=== PATIENT | male | born 1970 | race Caucasian/White ===

== ENCOUNTER 2016-06-17 20:18 | Emergency (ER) | payer BC ==
--- NOTE | 2016-06-17 20:57 | ERPHSYRPT ---
- History of Present Illness Time Seen by Provider: 06/17/16 20:46 Source: patient Exam Limitations: no limitations Patient Subjective Stated Complaint: pt states his bp was high at home 165/101 and recheck later was 155/102. states he had a headache at that time, but denies headache at this time. Triage Nursing Assessment: pt alert and oriented. answers qeustions approp. skin pink warm and dry. pt ambulatory with steady gait noted. respirations nonlabored with lungs cta. pt denies chest pain, denies headache at this time. heart tones wnl. Physician History: YESTERDAY PT STARTED WITH INTERMITTENT SHARP LEFT ANTERIOR CHEST PAIN LASTING UP TO 1 SECOND PER EPISODE; FOR THE PAST 17 HOURS SHORTNESS OF AIR; TODAY LEFT RETRO-ORBITAL HEADACHE, LIGHTHEADEDNESS AND BP OF 161/101. PT DENIES VOMITING, ABDOMINAL PAIN, RASH, SWELLING. Allergies/Adverse Reactions: No Known Drug Allergies Allergy (Unverified 06/17/16 20:42) Home Medications: No Home Meds 1 ea UD 06/17/16 [History] Hx Tetanus, Diphtheria Vaccination/Date Given: Yes Hx Influenza Vaccination/Date Given: No Hx Pneumococcal Vaccination/Date Given: No Immunizations Up to Date: Yes - Review of Systems Constitutional: Other (ELEVATED BP), No Fever Respiratory: Dyspnea Cardiac: Chest Pain Abdominal/Gastrointestinal: No Abdominal Pain, No Vomiting Skin: No Rash Neurological: Headache, Other (LIGHTHEADEDNESS) All Other Systems: Reviewed and Negative - Past Medical History Pertinent Past Medical History: No - Past Surgical History Past Surgical History: Yes Musculoskeletal: Orthopedic Surgery Other Surgical History: skin graft rt ankle - Social History Smoking Status: Former smoker Exposure to second hand smoke: No Drug Use: none Patient Lives Alone: No - Nursing Vital Signs Nursing Vital Signs: Initial Vital Signs Temperature 98.0 F Temperature Source Oral Pulse Rate 61 Respiratory Rate 16 Blood Pressure [] 136/81 Pain Intensity 0 - Physical Exam General Appearance: alert Eye Exam: PERRL/EOMI Ears, Nose, Throat Exam: TMs normal, pharynx normal, moist mucous membranes Neck Exam: normal inspection, No carotid bruit Respiratory Exam: lungs clear Cardiovascular Exam: normal heart sounds Gastrointestinal/Abdomen Exam: soft, normal bowel sounds Back Exam: normal range of motion Extremity Exam: normal inspection, No pedal edema Neurologic Exam: alert, cooperative Skin Exam: warm, dry SpO2 Interpretation: normal SpO2: 98 Oxygen Delivery: Room Air - Course Nursing assessment & vital signs reviewed: Yes EKG Interpreted by Me: RATE (51), Sinus Randolph, NORMAL AXIS, Non-specific ST Changes - Radiology Exams Chest X-ray Interpretation: Interpreted by me, No Pneumonia - CT Exams Head CT Interpretation: Tele-radiologist Report (NEGATIVE FOR INTRACRANIAL HEMORRHAGE OR MASS EFFECT. RIGHT MAXILLARY AND SPHENOID SINUS MUCOSAL THICKENING.) Ordered Tests: Active Orders 24 hr Category Date Time Status Qa Engineer STAT Care 06/17/16 20:51 Active EKG-ER Only STAT Care 06/17/16 20:51 Active IV Insertion STAT Care 06/17/16 20:51 Active Pulse Oximetry (ED) STAT Care 06/17/16 20:51 Active CHEST 2 VIEWS (PA AND LAT) Stat Exams 06/17/16 20:52 Taken HEAD WITHOUT CONTRAST [CT] Stat Exams 06/17/16 20:54 Taken AMYLASE Stat Lab 06/17/16 21:04 Completed CBC W DIFF Stat Lab 06/17/16 21:04 Completed CMP Stat Lab 06/17/16 21:04 Completed D-DIMER QUANTITATION Stat Lab 06/17/16 21:10 Completed LIPASE Stat Lab 06/17/16 21:04 Completed MAGNESIUM Stat Lab 06/17/16 21:04 Completed TROPONIN Q3H Lab 06/17/16 21:04 Completed TROPONIN Q3H Lab 06/18/16 00:00 Ordered TROPONIN Q3H Lab 06/18/16 03:00 Ordered TROPONIN Q3H Lab 06/18/16 06:00 Ordered TROPONIN Q3H Lab 06/18/16 09:00 Ordered UA W/ MICROSCOPIC Stat Lab 06/17/16 22:21 Completed Urine Triage Profile Stat Lab 06/17/16 22:21 Completed Medication Summary Generic Name Dose Route Start Last Admin Trade Name Freq PRN Reason Stop Dose Admin Sodium Chloride 1,000 mls @ 100 mls/hr 06/17/16 21:00 06/17/16 21:01 Sodium Chloride 0.9% 1000 Ml IV 07/17/16 20:59 100 mls/hr .Q10H BANG Administration Discontinued Medications Generic Name Dose Route Start Last Admin Trade Name Freq PRN Reason Stop Dose Admin Sodium Chloride Confirm 06/17/16 21:00 Sodium Chloride 0.9% 1000 Ml Administered 06/17/16 21:01 Dose 1,000 mls @ ud .ROUTE .STK-MED ONE Ceftriaxone Sodium/Dextrose 50 mls @ 100 mls/hr 06/17/16 21:40 06/17/16 21:47 Rocephin 1 Gm-D5w 50 Ml Bag IV 06/17/16 22:09 100 mls/hr STAT ONE Administration Ceftriaxone Sodium/Dextrose Confirm 06/17/16 21:46 Rocephin 1 Gm-D5w 50 Ml Bag Administered 06/17/16 21:47 Dose 50 mls @ ud IV .STK-MED ONE Nitroglycerin 0.4 mg 06/17/16 21:15 06/17/16 21:21 Nitrostat 0.4 Mg (Ed) SL 06/17/16 21:16 0.4 mg STAT ONE Administration Nitroglycerin Confirm 06/17/16 21:20 Nitrostat 0.4 Mg (Ed) Administered 06/17/16 21:21 Dose 0.4 mg SL .STK-MED ONE Lab/Rad Data: Laboratory Result Diagrams 06/17/16 21:04 06/17/16 21:04 Laboratory Results 06/17/16 06/17/16 06/17/16 Range/Units 22:21 22:21 21:10 WBC (4.0-10.5) K/mm3 RBC (4.1-5.6) M/mm3 Hgb (12.5-18.0) gm/dl Hct (42-50) % MCV (78-100) fl MCH (26-32) pg MCHC (32-36) g/dl RDW (11.5-14.0) % Plt Count (150-450) K/mm3 MPV (6-9.5) fl Gran % (36.0-66.0) % Lymphocytes % (24.0-44.0) % Monocytes % (0.0-12.0) % Eosinophils % (0.00-5.0) % Basophils % (0.0-0.4) % Basophils # (0-0.4) D-Dimer < 0.20 (0.00-0.49) mg/L Sodium (136-145) mEq/L Potassium (3.5-5.1) mEq/L Chloride (98-107) mEq/L Carbon Dioxide (21-32) mEq/L Anion Gap (5-15) MEQ/L BUN (9-20) mg/dL Creatinine (0.55-1.30) mg/dl Estimated GFR ML/MIN Glucose (70-110) MG/DL Calcium (8.5-10.1) mg/dL Magnesium (1.8-2.4) mg/dL Total Bilirubin (0.2-1.0) mg/dL AST (15-37) U/L ALT (12-78) U/L Alkaline Phosphatase (46-116) U/L Troponin I (0.000-0.056) ng/ml Serum Total Protein (6.4-8.2) gm/dL Albumin (3.4-5.0) g/dL Amylase (25-115) U/L Lipase (73-393) U/L Ur Collection Type CLEAN CATCH Urine Color YELLOW (YELLOW) Urine Appearance CLEAR (CLEAR) Urine pH 5.5 (5-6) Ur Specific [place] 1.020 (1.005-1.025) Urine Protein NEGATIVE (Negative) Urine Glucose (UA) NEGATIVE (NEGATIVE) mg/dL Urine Ketones NEGATIVE (NEGATIVE) Urine Nitrite NEGATIVE (NEGATIVE) Urine Bilirubin NEGATIVE (NEGATIVE) Urine Urobilinogen 0.2 (0-1) mg/dL Urine WBC (Auto) NEGATIVE (NEGATIVE) Urine RBC (Auto) TRACE-LYSED (0-5) Adama/ul Urine Microscopic RBC 0-2 (0-2) /HPF Ur Epithelial Cells RARE (FEW) /HPF Urine Bacteria RARE (NEGATIVE) /HPF Urine Opiates Level NEG. (NEGATIVE) Ur Methadone NEG. (NEGATIVE) Urine Barbiturates NEG. (NEGATIVE) Ur Phencyclidine (PCP) NEG. (NEGATIVE) Urine Amphetamine NEG. (NEGATIVE) U Benzodiazepine Level NEG. (NEGATIVE) Urine Cocaine NEG. (NEGATIVE) Urine Marijuana (THC) NEG. (NEGATIVE) Specimen Received 06/17/16 2224 06/17/16 06/17/16 06/17/16 Range/Units 21:04 21:04 21:04 WBC 5.0 (4.0-10.5) K/mm3 RBC 4.67 (4.1-5.6) M/mm3 Hgb 14.2 (12.5-18.0) gm/dl Hct 42.3 (42-50) % MCV 90.6 (78-100) fl MCH 30.4 (26-32) pg MCHC 33.6 (32-36) g/dl RDW 12.5 (11.5-14.0) % Plt Count 164 (150-450) K/mm3 MPV 9.8 H (6-9.5) fl Gran % 39.0 (36.0-66.0) % Lymphocytes % 49.2 H (24.0-44.0) % Monocytes % 8.6 (0.0-12.0) % Eosinophils % 3.0 (0.00-5.0) % Basophils % 0.2 (0.0-0.4) % Basophils # 0.01 (0-0.4) D-Dimer (0.00-0.49) mg/L Sodium 144 (136-145) mEq/L Potassium 3.8 (3.5-5.1) mEq/L Chloride 105 (98-107) mEq/L Carbon Dioxide 27.8 (21-32) mEq/L Anion Gap 14.8 (5-15) MEQ/L BUN 16 (9-20) mg/dL Creatinine 0.94 (0.55-1.30) mg/dl Estimated GFR > 60 ML/MIN Glucose 100 (70-110) MG/DL Calcium 8.8 (8.5-10.1) mg/dL Magnesium 2.0 (1.8-2.4) mg/dL Total Bilirubin 0.5 (0.2-1.0) mg/dL AST 19 (15-37) U/L ALT 36 (12-78) U/L Alkaline Phosphatase 55 (46-116) U/L Troponin I < 0.017 (0.000-0.056) ng/ml Serum Total Protein 6.5 (6.4-8.2) gm/dL Albumin 3.9 (3.4-5.0) g/dL Amylase 48 (25-115) U/L Lipase 193 (73-393) U/L Ur Collection Type Urine Color (YELLOW) Urine Appearance (CLEAR) Urine pH (5-6) Ur Specific [place] (1.005-1.025) Urine Protein (Negative) Urine Glucose (UA) (NEGATIVE) mg/dL Urine Ketones (NEGATIVE) Urine Nitrite (NEGATIVE) Urine Bilirubin (NEGATIVE) Urine Urobilinogen (0-1) mg/dL Urine WBC (Auto) (NEGATIVE) Urine RBC (Auto) (0-5) Adama/ul Urine Microscopic RBC (0-2) /HPF Ur Epithelial Cells (FEW) /HPF Urine Bacteria (NEGATIVE) /HPF Urine Opiates Level (NEGATIVE) Ur Methadone (NEGATIVE) Urine Barbiturates (NEGATIVE) Ur Phencyclidine (PCP) (NEGATIVE) Urine Amphetamine (NEGATIVE) U Benzodiazepine Level (NEGATIVE) Urine Cocaine (NEGATIVE) Urine Marijuana (THC) (NEGATIVE) Specimen Received - Progress Progress Note: 06/17/16 23:50 PT HAS HAD A HEART RATE 0F 46 DURING PRESENT ER VISIT AND HAS NEVER SEEN A NAIL MACHINE OPERATOR OR HAD A STRESS TEST OR ECHOCARDIOGRAM. REQUEST MADE FOR TRANSFER TO [facility]. 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
[2016-06-17] MEDS ORDERED: Sodium Chloride 0.9% 1000 ML 1,000 ML ONE (21:00)
[2016-06-17] MEDS ORDERED: Sodium Chloride 0.9% 1000 ML 1,000 ML IV SCH (21:00)
[2016-06-17 21:11] LABS: BASOPHIL % 0.2 % (0.0-0.4); Lymphocytes % 49.2 % (24.0-44.0); Mean Cell Volume 90.6 fl (78-100); Mean Corpuscular Hemoglobin 30.4 pg (26-32); Mean Platelet Volume 9.8 fl (6-9.5); Monocytes % 8.6 % (0.0-12.0); Platelet Count 164 K/mm3 (150-450); Red Blood Count 4.67 M/mm3 (4.1-5.6); Red Cell Distribution Width 12.5 % (11.5-14.0)
[2016-06-17] MEDS ORDERED: Nitrostat 0.4 MG (ED) SL ONE ×2 (21:15→21:20)
[2016-06-17] MEDS ORDERED: ROCEPHIN 1 Gm-D5w 50 ml Bag** 50 ML IV ONE ×2 (21:40→21:46)
[2016-06-17 21:44] LABS: ALBUMIN 3.9 g/dL (3.4-5.0); ALKALINE PHOSPHATASE 55 U/L (46-116); ANION GAP 14.8 MEQ/L (5-15); BILIRUBIN,TOTAL 0.5 mg/dL (0.2-1.0); BLOOD UREA NITROGEN 16 mg/dL (9-20); CHLORIDE 105 mEq/L (98-107); Carbon Dioxide 27.8 mEq/L (21-32); Glucose 100 MG/DL (70-110); LIPASE 193 U/L (73-393); Potassium 3.8 mEq/L (3.5-5.1); SGOT/AST 19 U/L (15-37); SGPT/ALT 36 U/L (12-78); SODIUM 144 mEq/L (136-145); Total Protein 6.5 gm/dL (6.4-8.2)
[2016-06-17 22:47] LABS: Bacteria RARE /HPF (NEGATIVE); COMPLETE URINE MICROSCOPIC? YES; Collection Type CLEAN CATCH; Epithelial Cells RARE /HPF (FEW); Ph 5.5 (5-6)
[2016-06-18 01:07] VITALS: BP 126/77; PULSE 48; O2SAT 98
--- NOTE | 2016-06-18 08:35 | XRAY ---
Indication: Chest pain. High blood pressure. Comparison: January 18, 2007 AP/lateral chest again hyperinflated with minimal lingular fibrosis/scarring. Remaining heart, lungs, and bony thorax normal.
--- NOTE | 2016-06-18 08:38 | XRAY ---
Indication: Headache and dizziness. High blood pressure. Multiple contiguous axial images obtained through the head without contrast. Comparison: None Normal-appearing brain parenchyma, ventricles, and bony calvarium. Moderate mucosal thickening of the right sphenoid and right maxillary sinuses. Mastoid air cells are pneumatized and clear. Impression: No acute intracranial abnormalities. Comment: Preliminary interpretation was made by [facility]. No discrepancy. CT DI 70.21
== END 2016-06-18 00:56 | disposition short-term general hospital (02) ==
LOC: ED 20:18
DX: J32.0 Chronic maxillary sinusitis (principal); J32.3 Chronic sphenoidal sinusitis; I10 Essential (primary) hypertension; I49.8 Other specified cardiac arrhythmias; R00.1 Bradycardia, unspecified; R51 Headache
CPT/HCPCS: 36000; 36415; 70450; 71020; 80053; 80307; 81000; 82150; 83690; 83735; 84484; 85025; 85379; 93005; 93041; 96360; 96361; 96365; 99284; J0696

== ENCOUNTER 2018-08-10 22:47 | Emergency (ER) | payer BC ==
[2018-08-10 23:07] VITALS: O2SAT 98
[2018-08-10] MEDS ORDERED: Sodium Chloride 0.9% 1000 ML 1,000 ML IV STA (23:12)
--- NOTE | 2018-08-10 23:12 | ERPHSYRPT ---
- History of Present Illness Time Seen by Provider: 08/10/18 23:05 Historian: patient, family Patient Subjective Stated Complaint: pt is alert and oriented. pt is ambulatory with a steady gait. pt comes in with c/o abd pain that began at 0030 today. pt states the pain is epigastic and RUQ. pt states that the pain goes around to the back. pt denies n/v/d. pt bowel sounds present x4. pt is not diaphoretic, no chest pain, no sob, pt states he's been having RUQ pain for a few months and has not seen family doctor. Triage Nursing Assessment: see above Physician History: 47 y/o white male presents with ruq abd pain for several months. pain radiates around into back. pt denies cp, denies soa. pt worse today. onset approx 1230. no n/v/d. pt has been on a keto diet and lost 40 pounds since february 2018. pt feels bloated and belchy and gassy. Timing/Duration: week(s), worse Abdominal Pain Onset Location: RUQ Pain Radiation: back Severity of Pain-Max: moderate Severity of Pain-Current: mild Modifying Factors: Improves With: nothing Associated Symptoms: back (earlier) Previous symptoms: same symptoms as today Allergies/Adverse Reactions: No Known Drug Allergies Allergy (Unverified 06/17/16 20:42) Home Medications: No Home Meds [No Home Meds] 1 [facility] UD 06/17/16 [History] Hx Tetanus, Diphtheria Vaccination/Date Given: Yes Hx Influenza Vaccination/Date Given: No Hx Pneumococcal Vaccination/Date Given: No Immunizations Up to Date: Yes - Review of Systems Constitutional: No Symptoms Eyes: No Symptoms Ears, Nose, & Throat: No Symptoms Respiratory: No Symptoms Cardiac: No Symptoms Abdominal/Gastrointestinal: Abdominal Pain (ruq abd ) Genitourinary Symptoms: No Symptoms Musculoskeletal: No Symptoms Skin: No Symptoms Neurological: No Symptoms Psychological: No Symptoms Endocrine: No Symptoms Hematologic/Lymphatic: No Symptoms Immunological/Allergic: No Symptoms All Other Systems: Reviewed and Negative - Past Medical History Pertinent Past Medical History: No Neurological History: No Pertinent History ENT History: No Pertinent History Cardiac History: Hypertension Respiratory History: No Pertinent History Endocrine Medical History: No Pertinent History Musculoskeletal History: No Pertinent History GI Medical History: No Pertinent History History: No Pertinent History Psycho-Social History: No Pertinent History Male Reproductive Disorders: No Pertinent History Other Medical History: possible gall bladder problems - Past Surgical History Past Surgical History: Yes Neuro Surgical History: No Pertinent History Cardiac: No Pertinent History Respiratory: No Pertinent History Gastrointestinal: No Pertinent History Genitourinary: No Pertinent History Musculoskeletal: Orthopedic Surgery Male Surgical History: No Pertinent History Other Surgical History: cyst removal from left hand, skin graft rt ankle, R meniscus surgery. - Social History Smoking Status: Former smoker Exposure to second hand smoke: No Drug Use: none Patient Lives Alone: No - Nursing Vital Signs Nursing Vital Signs: Initial Vital Signs Pulse Rate 56 L 08/10/18 22:56 Respiratory Rate 18 08/10/18 22:56 Blood Pressure 163/92 08/10/18 22:56 O2 Sat by Pulse Oximetry 98 08/10/18 22:56 Pain Scale Pain Intensity 5 - Physical Exam General Appearance: no apparent distress, alert Eye Exam: PERRL/EOMI Ears, Nose, Throat Exam: normal ENT inspection, moist mucous membranes Neck Exam: normal inspection, non-tender, supple, full range of motion Respiratory Exam: normal breath sounds, lungs clear, airway intact, No chest tenderness, No respiratory distress Cardiovascular Exam: regular rate/rhythm, normal heart sounds, normal peripheral pulses Gastrointestinal/Abdomen Exam: soft, normal bowel sounds, tenderness (mild ruq) , No guarding, No rebound Rectal Exam: not done Back Exam: normal inspection, normal range of motion, No CVA tenderness, No vertebral tenderness Extremity Exam: normal inspection, normal range of motion, pelvis stable Neurologic Exam: alert, oriented x 3, cooperative, tire shop manager II-XII nml as tested Skin Exam: normal color, warm, dry Lymphatic Exam: No adenopathy SpO2 Interpretation: normal SpO2: 98 O2 Delivery: Room Air - Course Nursing assessment & vital signs reviewed: Yes Ordered Tests: Active Orders 24 hr Category Date Time Status IV Insertion STAT Care 08/10/18 23:12 Active AMYLASE Stat Lab 08/10/18 23:14 Completed CBC W DIFF Stat Lab 08/10/18 23:14 Completed CMP Stat Lab 08/10/18 23:14 Completed LIPASE Stat Lab 08/10/18 23:14 Completed Lactic Acid Stat Lab 08/10/18 23:12 Completed UA W/RFX UR CULTURE Stat Lab 08/10/18 23:56 Completed Medication Summary Discontinued Medications Generic Name Dose Route Start Last Admin Trade Name Wilfrdio PRN Reason Stop Dose Admin Sodium Chloride 1,000 mls @ 999 mls/hr 08/10/18 23:12 08/11/18 00:23 Sodium Chloride 0.9% 1000 Ml IV 08/11/18 00:12 Infused .Q1H1M STA Infusion Sodium Chloride Confirm 08/10/18 23:27 Sodium Chloride 0.9% 1000 Ml Administered 08/10/18 23:28 Dose 1,000 mls @ ud .ROUTE .STK-MED ONE Lab/Rad Data: Laboratory Result Diagrams 08/10/18 23:14 08/10/18 23:14 Laboratory Results 08/10/18 08/10/18 08/10/18 Range/Units 23:56 23:14 23:14 WBC 6.3 (4.0-10.5) K/mm3 RBC 4.98 (4.1-5.6) M/mm3 Hgb 15.1 (12.5-18.0) gm/dl Hct 44.5 (42-50) % MCV 89.4 (78-100) fl MCH 30.3 (26-32) pg MCHC 33.9 (32-36) g/dl RDW 12.9 (11.5-14.0) % Plt Count 166 (150-450) K/mm3 MPV 10.0 H (6-9.5) fl Gran % 51.9 (36.0-66.0) % Eos # (Auto) 0.22 (0-0.5) Absolute Lymphs (auto) 2.29 (1.0-4.6) Absolute Monos (auto) 0.51 (0.0-1.3) Lymphocytes % 36.2 (24.0-44.0) % Monocytes % 8.1 (0.0-12.0) % Eosinophils % 3.5 (0.00-5.0) % Basophils % 0.3 (0.0-0.4) % Absolute Granulocytes 3.29 (1.4-6.9) Basophils # 0.02 (0-0.4) Sodium 143 (137-145) mmol/L Potassium 3.8 (3.5-5.1) mmol/L Chloride 105 (98-107) mmol/L Carbon Dioxide 25 (22-30) mmol/L Anion Gap 15.8 H (5-15) MEQ/L BUN 26 H (9-20) mg/dL Creatinine 0.88 (0.66-1.25) mg/dL Estimated GFR > 60.0 ML/MIN Glucose 92 (74-106) mg/dL Lactic Acid (0.4-2.0) Calcium 9.8 (8.4-10.2) mg/dL Total Bilirubin 0.70 (0.2-1.3) mg/dL AST 28 (17-59) U/L ALT 34 (0-50) U/L Alkaline Phosphatase 54 (38-126) U/L Serum Total Protein 7.2 (6.3-8.2) g/dL Albumin 4.7 (3.5-5.0) g/dL Amylase 82 (30-110) U/L Lipase 93 (23-300) U/L Urine Color YELLOW (YELLOW) Urine Appearance CLEAR (CLEAR) Urine pH 6.0 (5-6) Ur Specific [place] 1.027 (1.005-1.025) Urine Protein NEGATIVE (Negative) Urine Ketones NEGATIVE (NEGATIVE) Urine Blood SMALL (0-5) Adama/ul Urine Nitrite NEGATIVE (NEGATIVE) Urine Bilirubin NEGATIVE (NEGATIVE) Urine Urobilinogen 2 (0-1) mg/dL Ur Leukocyte Esterase NEGATIVE (NEGATIVE) Urine WBC (Auto) NONE (0-5) /HPF Urine RBC (Auto) 3-5 (0-2) /HPF U Epithel Cells (Auto) NONE (FEW) /HPF Urine Bacteria (Auto) NONE SEEN (NEGATIVE) /HPF Calcium Oxalate Crystal 6-10 (NEGATIVE) /HPF Urine Culture Reflexed NO (NO) Urine Glucose NEGATIVE (NEGATIVE) mg/dL 08/10/18 Range/Units 23:12 WBC (4.0-10.5) K/mm3 RBC (4.1-5.6) M/mm3 Hgb (12.5-18.0) gm/dl Hct (42-50) % MCV (78-100) fl MCH (26-32) pg MCHC (32-36) g/dl RDW (11.5-14.0) % Plt Count (150-450) K/mm3 MPV (6-9.5) fl Gran % (36.0-66.0) % Eos # (Auto) (0-0.5) Absolute Lymphs (auto) (1.0-4.6) Absolute Monos (auto) (0.0-1.3) Lymphocytes % (24.0-44.0) % Monocytes % (0.0-12.0) % Eosinophils % (0.00-5.0) % Basophils % (0.0-0.4) % Absolute Granulocytes (1.4-6.9) Basophils # (0-0.4) Sodium (137-145) mmol/L Potassium (3.5-5.1) mmol/L Chloride (98-107) mmol/L Carbon Dioxide (22-30) mmol/L Anion Gap (5-15) MEQ/L BUN (9-20) mg/dL Creatinine (0.66-1.25) mg/dL Estimated GFR ML/MIN Glucose (74-106) mg/dL Lactic Acid 0.9 (0.4-2.0) Calcium (8.4-10.2) mg/dL Total Bilirubin (0.2-1.3) mg/dL AST (17-59) U/L ALT (0-50) U/L Alkaline Phosphatase (38-126) U/L Serum Total Protein (6.3-8.2) g/dL Albumin (3.5-5.0) g/dL Amylase (30-110) U/L Lipase (23-300) U/L Urine Color (YELLOW) Urine Appearance (CLEAR) Urine pH (5-6) Ur Specific [place] (1.005-1.025) Urine Protein (Negative) Urine Ketones (NEGATIVE) Urine Blood (0-5) Adama/ul Urine Nitrite (NEGATIVE) Urine Bilirubin (NEGATIVE) Urine Urobilinogen (0-1) mg/dL Ur Leukocyte Esterase (NEGATIVE) Urine WBC (Auto) (0-5) /HPF Urine RBC (Auto) (0-2) /HPF U Epithel Cells (Auto) (FEW) /HPF Urine Bacteria (Auto) (NEGATIVE) /HPF Calcium Oxalate Crystal (NEGATIVE) /HPF Urine Culture Reflexed (NO) Urine Glucose (NEGATIVE) mg/dL - Progress Progress: improved, pain not gone completely, re-examined Counseled pt/family regarding: lab results, diagnosis, need for follow-up - Departure Time of Disposition: 00:41 Departure Disposition: Home Clinical Impression: Right upper quadrant abdominal pain Condition: Stable Critical Care Time: No Referrals: LAINEY MCELROY, HUGO [Primary Care Provider] - Additional Instructions: drink plenty of fluids. avoid fatty, greasy, spicy food. keep your appointment on 08/11/17 for further management
[2018-08-10 23:17] LABS: BASOPHIL % 0.3 % (0.0-0.4); Basophil (Absolute #) 0.02 (0-0.4); Eosinophil % 3.5 % (0.00-5.0); Eosinophil (Absolute #) 0.22 (0-0.5); Granulocyte Absolute (ANC) 3.29 (1.4-6.9); Granulocytes % 51.9 % (36.0-66.0); Hematocrit 44.5 % (42-50); Hemoglobin 15.1 gm/dl (12.5-18.0); Lymphocyte (Absolute #) 2.29 (1.0-4.6); Lymphocytes % 36.2 % (24.0-44.0); Mean Cell Volume 89.4 fl (78-100); Mean Corpuscular Hemoglobin 30.3 pg (26-32); Mean Corpuscular Hgb Concent. 33.9 g/dl (32-36); Monocyte (Absolute #) 0.51 (0.0-1.3); Monocytes % 8.1 % (0.0-12.0); Platelet Count 166 K/mm3 (150-450); Red Blood Count 4.98 M/mm3 (4.1-5.6); Red Cell Distribution Width 12.9 % (11.5-14.0); White Blood Count 6.3 K/mm3 (4.0-10.5)
[2018-08-10 23:23] LABS: ALBUMIN 4.7 g/dL (3.5-5.0); ALKALINE PHOSPHATASE 54 U/L (38-126); AMYLASE 82 U/L (30-110); ANION GAP 15.8 MEQ/L (5-15); BLOOD UREA NITROGEN 26 mg/dL (9-20); CHLORIDE 105 mmol/L (98-107); Calcium 9.8 mg/dL (8.4-10.2); Carbon Dioxide 25 mmol/L (22-30); Creatinine 1 0.88 mg/dL (0.66-1.25); Glucose 92 mg/dL (74-106); LIPASE 93 U/L (23-300); Potassium 3.8 mmol/L (3.5-5.1); SGOT/AST 28 U/L (17-59); SGPT/ALT 34 U/L (0-50); SODIUM 143 mmol/L (137-145); Total Protein 7.2 g/dL (6.3-8.2)
[2018-08-10] MEDS ORDERED: Sodium Chloride 0.9% 1000 ML 1,000 ML ONE (23:27)
[2018-08-11 00:35] LABS: Appearance CLEAR (CLEAR); Bilirubin NEGATIVE (NEGATIVE); Blood SMALL Ery/ul (0-5); Glucose NEGATIVE (NEGATIVE); Ketones NEGATIVE (NEGATIVE); Leukocyte Esterase NEGATIVE (NEGATIVE); Nitrite NEGATIVE (NEGATIVE); Protein,Urine Dip NEGATIVE (Negative); Specific Gravity 1.027 (1.005-1.025); Urobilinogen 2 mg/dL (0-1)
[2018-08-11 00:36] LABS: Bacteria NONE SEEN /HPF (NEGATIVE)
[2018-08-11 00:41] VITALS: BP 143/66; PULSE 56
== END 2018-08-11 00:48 | disposition home or self-care (01) ==
LOC: ED 22:47
DX: R10.11 Right upper quadrant pain (principal)
CPT/HCPCS: 36000; 36415; 80053; 81001; 82150; 83605; 83690; 85025; 96360; 99284

== ENCOUNTER 2020-09-11 14:43 | Emergency (ER) | payer BC ==
[2020-09-11] MEDS ORDERED: NORVASC 5 MG PO ONE (15:03)
[2020-09-11] MEDS ORDERED: Catapres 0.1 MG PO ONE (15:03)
[2020-09-11] MEDS ORDERED: Hydromorphone 1 mg/ml Injection IV ONE ×2 (15:04→17:19)
[2020-09-11] MEDS ORDERED: Catapres 0.1 MG ONE (15:15)
[2020-09-11] MEDS ORDERED: Hydromorphone 1 mg/ml Injection ONE ×2 (15:15→17:20)
[2020-09-11] MEDS ORDERED: Sodium Chloride 0.9% 1000 ML 1,000 ML IV SCH (15:15)
[2020-09-11] MEDS ORDERED: NORVASC 5 MG ONE (15:15)
[2020-09-11] MEDS ORDERED: Sodium Chloride 0.9% 1000 ML 1,000 ML ONE (15:15)
[2020-09-11 15:19] LABS: Absolute Neutrophil Ct (ANC) 4.82 (1.4-6.9); BASOPHIL % 0.3 % (0.0-0.4); Basophil (Absolute #) 0.02 (0-0.4); Eosinophil % 1.4 % (0.00-5.0); Hematocrit 42.7 % (42-50); Hemoglobin 14.4 gm/dl (12.5-18.0); Lymphocytes % 23.9 % (24.0-44.0); Mean Cell Volume 91.6 fl (78-100); Mean Corpuscular Hemoglobin 30.9 pg (26-32); Mean Corpuscular Hgb Concent. 33.7 g/dl (32-36); Mean Platelet Volume 9.5 fl (7.5-11.0); Monocyte (Absolute #) 0.48 (0.0-1.3); Monocytes % 6.7 % (0.0-12.0); Neutrophil % 67.7 % (36.0-66.0); Platelet Count 160 K/mm3 (150-450); Red Blood Count 4.66 M/mm3 (4.1-5.6); Red Cell Distribution Width 12.6 % (11.5-14.0); White Blood Count 7.1 K/mm3 (4.0-10.5)
[2020-09-11 15:33] LABS: ALBUMIN 4.4 g/dL (3.5-5.0); ALKALINE PHOSPHATASE 51 U/L (38-126); BLOOD UREA NITROGEN 15 mg/dL (9-20); CHLORIDE 102 mmol/L (98-107); Calcium 9.5 mg/dL (8.4-10.2); Carbon Dioxide 29 mmol/L (22-30); Creatinine 1 0.75 mg/dL (0.66-1.25); EST GLOMERULAR FILTRATION RATE > 60.0 ML/MIN; Glucose 107 mg/dL (74-106); Potassium 3.7 mmol/L (3.5-5.1); SGOT/AST 23 U/L (17-59); SGPT/ALT 21 U/L (0-50); SODIUM 138 mmol/L (137-145); Total Protein 6.8 g/dL (6.3-8.2)
[2020-09-11 15:36] LABS: Erythrocyte Sedimentation Rate 1 mm/hr (0-15)
[2020-09-11] MEDS ORDERED: APRESOLINE 20 MG/ML INJ IV ONE ×2 (16:53→17:27)
[2020-09-11] MEDS ORDERED: APRESOLINE 20 MG/ML INJ ONE ×3 (16:54→18:27)
--- NOTE | 2020-09-11 17:03 | ERPHSYRPT ---
- History of Present Illness Time Seen by Provider: 09/11/20 15:15 Source: patient, family Exam Limitations: no limitations Patient Subjective Stated Complaint: headache Triage Nursing Assessment: pt to ED c/o MARSHALL onset 0300 this am. also reports no anuel HTN since 1030 this am, highest 176/110 at that time. hx HTN, takes medication and did have it today. rates 10/10 pain in head, very sensitive to light. reports some dizziness this am that has since subsided. Physician History: Patient is a 49-year-old male who started with a headache at approximately 2 AM. He has a history of hypertension he has some photophobia. He denies any chest pain shortness of breath etc. he presently is maintained on losartan 100 mg tulio y. He has had some dizziness today. And his blood pressure has been elevated highest reading at home was 176/110. Timing/Duration: today Activities at Onset: none Quality: throbbing Nitro Today/Relief: no nitro taken today Aspirin Treatment Today: no aspirin today Associated Symptoms: headaches Prior Chest Pain/Cardiac Workup: no prior chest pain, no prior cardiac workup Allergies/Adverse Reactions: No Known Drug Allergies Allergy (Unverified 06/17/16 20:42) Home Medications: Hydrocodone/Acetaminophen [Hydrocodone-Acetamin 10-300 mg] 1 each PO DAILY 09/11/20 [History] Losartan Potassium 100 mg PO BID 09/11/20 [History] Omeprazole 20 mg PO DAILY 09/11/20 [History] Tadalafil [Cialis] 2.5 mg PO DAILY 09/11/20 [History] Hx Tetanus, Diphtheria Vaccination/Date Given: Yes Hx Influenza Vaccination/Date Given: No Hx Pneumococcal Vaccination/Date Given: No Immunizations Up to Date: No Travel Risk - International Travel Have you traveled outside of the country in past 3 weeks: No - Coronavirus Screening Are you exhibiting any of the following symptoms?: No Close contact with a COVID-19 positive Pt in past 14-21 Days: No - Vaccine Status Have you recieved a Covid-19 vaccination: No - Review of Systems Constitutional: No Fever, No Chills Eyes: No Symptoms Ears, Nose, & Throat: No Symptoms Respiratory: No Cough, No Dyspnea Cardiac: No Chest Pain, No Edema, No Syncope Abdominal/Gastrointestinal: No Abdominal Pain, No Nausea, No Vomiting, No Diarrhea Genitourinary Symptoms: No Dysuria Musculoskeletal: No Back Pain, No Neck Pain Skin: No Rash Neurological: No Dizziness, No Focal Weakness, No Sensory Changes Psychological: No Symptoms Endocrine: No Symptoms All Other Systems: Reviewed and Negative - Past Medical History Pertinent Past Medical History: Yes Neurological History: No Pertinent History ENT History: No Pertinent History Cardiac History: Hypertension Respiratory History: No Pertinent History Endocrine Medical History: Other Musculoskeletal History: Degenerative Disk Disease, Osteoarthritis GI Medical History: No Pertinent History History: No Pertinent History Psycho-Social History: No Pertinent History Male Reproductive Disorders: No Pertinent History Other Medical History: MRI showed a benign cyst on the kidney, cyst in the thyroid, - Past Surgical History Past Surgical History: Yes Neuro Surgical History: No Pertinent History Cardiac: No Pertinent History Respiratory: No Pertinent History Gastrointestinal: No Pertinent History Genitourinary: No Pertinent History Musculoskeletal: Orthopedic Surgery Male Surgical History: No Pertinent History Other Surgical History: cyst removal from left hand, skin graft rt ankle, R meniscus surgery. - Social History Smoking Status: Former smoker Exposure to second hand smoke: No Drug Use: none Patient Lives Alone: No - Nursing Vital Signs Nursing Vital Signs: Initial Vital Signs Temperature 99.2 F 09/11/20 15:03 Pulse Rate 68 09/11/20 15:03 Respiratory Rate 18 09/11/20 15:03 Blood Pressure 173/97 09/11/20 15:03 O2 Sat by Pulse Oximetry 96 09/11/20 15:03 Pain Scale Pain Intensity 2 - Physical Exam General Appearance: mild distress Eye Exam: PERRL/EOMI, eyes nml inspection Ears, Nose, Throat Exam: normal ENT inspection, moist mucous membranes Neck Exam: normal inspection, non-tender, supple Respiratory Exam: normal breath sounds Cardiovascular Exam: regular rate/rhythm, normal heart sounds, No edema Gastrointestinal/Abdomen Exam: soft, No tenderness, No mass Back Exam: normal inspection, No CVA tenderness, No vertebral tenderness Extremity Exam: normal inspection, normal range of motion Neurologic Exam: alert, oriented x 3, cooperative, normal mood/affect, nml cerebellar function, sensation nml, No motor deficits Skin Exam: normal color, warm, dry Lymphatic Exam: No adenopathy SpO2 Interpretation: normal SpO2: 93 O2 Delivery: Room Air - Course Nursing assessment & vital signs reviewed: Yes EKG Interpreted by Me: RATE (65), NORMAL AXIS, NORMAL INTERVALS, NORMAL QRS, Other (Early repolarization) Ordered Tests: Active Orders 24 hr Category Date Time Status EKG-ER Only STAT Care 09/11/20 15:06 Active EKG-ER Only STAT Care 09/11/20 17:35 Active ABDOMEN AND PELVIS W CONTRAST [CT] Stat Exams 09/11/20 17:35 Taken HEAD WITHOUT CONTRAST [CT] Stat Exams 09/11/20 15:05 Taken AMYLASE Stat Lab 09/11/20 17:45 Completed CBC W DIFF Stat Lab 09/11/20 15:17 Completed CMP Stat Lab 09/11/20 15:17 Completed CMP Stat Lab 09/11/20 17:45 Completed Erythrocyte Sedimentation Rate Stat Lab 09/11/20 15:17 Completed LIPASE Stat Lab 09/11/20 17:45 Completed Lactic Acid Stat Lab 09/11/20 17:49 Completed Lactic Acid Urgent Lab 09/11/20 15:04 Completed TROPONIN Q3H Lab 09/11/20 15:17 Completed TROPONIN Q3H Lab 09/11/20 17:45 Completed TROPONIN Q3H Lab 09/11/20 21:15 Ordered UA W/RFX UR CULTURE Stat Lab 09/11/20 17:16 Completed Urine Triage Profile Stat Lab 09/11/20 17:16 Completed Medication Summary Generic Name Dose Route Start Last Admin Trade Name Freq PRN Reason Stop Dose Admin Sodium Chloride 1,000 mls @ 100 mls/hr 09/11/20 15:15 09/11/20 15:23 Sodium Chloride 0.9% 1000 Ml IV 10/11/20 15:14 100 mls/hr .Q10H BANG Administration Discontinued Medications Generic Name Dose Route Start Last Admin Trade Name Freq PRN Reason Stop Dose Admin Amlodipine Besylate 10 mg 09/11/20 15:03 09/11/20 15:22 Norvasc 5 Mg PO 09/11/20 15:04 10 mg STAT ONE Administration Amlodipine Besylate Confirm 09/11/20 15:15 Norvasc 5 Mg Administered 09/11/20 15:16 Dose 10 mg .ROUTE .STK-MED ONE Clonidine 0.1 mg 09/11/20 15:03 09/11/20 15:19 Catapres 0.1 Mg PO 09/11/20 15:04 0.1 mg STAT ONE Administration Clonidine Confirm 09/11/20 15:15 Catapres 0.1 Mg Administered 09/11/20 15:16 Dose 0.1 mg .ROUTE .STK-MED ONE Hydralazine HCl 10 mg 09/11/20 16:53 09/11/20 16:56 Apresoline 20 Mg/Ml Inj IV 09/11/20 16:54 10 mg STAT ONE Administration Hydralazine HCl Confirm 09/11/20 16:54 Apresoline 20 Mg/Ml Inj Administered 09/11/20 16:55 Dose 20 mg .ROUTE .STK-MED ONE Hydralazine HCl 10 mg 09/11/20 17:27 09/11/20 17:28 Apresoline 20 Mg/Ml Inj IV 09/11/20 17:28 10 mg STAT ONE Administration Hydralazine HCl Confirm 09/11/20 17:28 Apresoline 20 Mg/Ml Inj Administered 09/11/20 17:29 Dose 20 mg .ROUTE .STK-MED ONE Hydralazine HCl 10 mg 09/11/20 18:25 09/11/20 18:39 Apresoline 20 Mg/Ml Inj IV 09/11/20 18:26 10 mg STAT ONE Administration Hydralazine HCl Confirm 09/11/20 18:27 Apresoline 20 Mg/Ml Inj Administered 09/11/20 18:28 Dose 20 mg .ROUTE .STK-MED ONE Hydromorphone HCl 1 mg 09/11/20 15:04 09/11/20 15:25 Hydromorphone 1 Mg/Ml Injection IV 09/11/20 15:05 1 mg STAT ONE Administration Hydromorphone HCl Confirm 09/11/20 15:15 Hydromorphone 1 Mg/Ml Injection Administered 09/11/20 15:16 Dose 1 mg .ROUTE .STK-MED ONE Hydromorphone HCl 1 mg 09/11/20 17:19 09/11/20 17:23 Hydromorphone 1 Mg/Ml Injection IV 09/11/20 17:20 1 mg STAT ONE Administration Hydromorphone HCl Confirm 09/11/20 17:20 Hydromorphone 1 Mg/Ml Injection Administered 09/11/20 17:21 Dose 1 mg .ROUTE .STK-MED ONE Ketorolac Tromethamine 30 mg 09/11/20 18:23 09/11/20 18:29 Toradol 30 Mg Injection IV 09/11/20 18:24 30 mg STAT ONE Administration Ketorolac Tromethamine Confirm 09/11/20 18:27 Toradol 30 Mg Injection Administered 09/11/20 18:28 Dose 30 mg .ROUTE .STK-MED ONE Ondansetron HCl Confirm 09/11/20 17:31 Zofran 4 Mg/2 Ml Vial Administered 09/11/20 17:32 Dose 4 mg .ROUTE .STK-MED ONE Ondansetron HCl 4 mg 09/11/20 18:50 09/11/20 18:51 Zofran 4 Mg/2 Ml Vial IV 09/11/20 18:51 4 mg STAT ONE Administration Sumatriptan Succinate 6 mg 09/11/20 18:23 09/11/20 19:10 Imitrex 6 Mg/0.5 Ml SQ 09/11/20 18:24 6 mg STAT STA Administration Sumatriptan Succinate Confirm 09/11/20 18:27 Imitrex 6 Mg/0.5 Ml Administered 09/11/20 18:28 Dose 6 mg SQ .STK-MED ONE Lab/Rad Data: Laboratory Result Diagrams 09/11/20 15:17 09/11/20 17:45 Laboratory Results 09/11/20 09/11/20 09/11/20 Range/Units 17:49 17:45 17:45 WBC (4.0-10.5) K/mm3 RBC (4.1-5.6) M/mm3 Hgb (12.5-18.0) gm/dl Hct (42-50) % MCV (78-100) fl MCH (26-32) pg MCHC (32-36) g/dl RDW (11.5-14.0) % Plt Count (150-450) K/mm3 MPV (7.5-11.0) fl Gran % (36.0-66.0) % Eos # (Auto) (0-0.5) Absolute Lymphs (auto) (1.0-4.6) Absolute Monos (auto) (0.0-1.3) Lymphocytes % (24.0-44.0) % Monocytes % (0.0-12.0) % Eosinophils % (0.00-5.0) % Basophils % (0.0-0.4) % Absolute Granulocytes (1.4-6.9) Basophils # (0-0.4) ESR (0-15) mm/hr Sodium 134 L (137-145) mmol/L Potassium 3.8 (3.5-5.1) mmol/L Chloride 103 (98-107) mmol/L Carbon Dioxide 26 (22-30) mmol/L Anion Gap 8.9 (5-15) MEQ/L BUN 15 (9-20) mg/dL Creatinine 0.65 L (0.66-1.25) mg/dL Estimated GFR > 60.0 ML/MIN Glucose 107 H (74-106) mg/dL Lactic Acid 1.3 (0.4-2.0) Calcium 9.5 (8.4-10.2) mg/dL Total Bilirubin 0.50 (0.2-1.3) mg/dL AST 23 (17-59) U/L ALT 22 (0-50) U/L Alkaline Phosphatase 53 (38-126) U/L Troponin I < 0.012 (0.000-0.034) ng/mL Serum Total Protein 6.8 (6.3-8.2) g/dL Albumin 4.3 (3.5-5.0) g/dL Amylase 76 (30-110) U/L Lipase 109 (23-300) U/L Urine Color (YELLOW) Urine Appearance (CLEAR) Urine pH (5-6) Ur Specific [place] (1.005-1.025) Urine Protein (Negative) Urine Ketones (NEGATIVE) Urine Blood (0-5) Adama/ul Urine Nitrite (NEGATIVE) Urine Bilirubin (NEGATIVE) Urine Urobilinogen (0-1) mg/dL Ur Leukocyte Esterase (NEGATIVE) Urine WBC (Auto) (0-5) /HPF Urine RBC (Auto) (0-2) /HPF U Epithel Cells (Auto) (FEW) /HPF Urine Bacteria (Auto) (NEGATIVE) /HPF Urine Mucus (Auto) (NEGATIVE) /HPF Urine Culture Reflexed (NO) Urine Glucose (NEGATIVE) mg/dL Urine Opiates Level (NEGATIVE) Ur Methadone (NEGATIVE) Urine Barbiturates (NEGATIVE) Ur Phencyclidine (PCP) (NEGATIVE) Urine Amphetamine (NEGATIVE) U Benzodiazepine Level (NEGATIVE) Urine Cocaine (NEGATIVE) Urine Marijuana (THC) (NEGATIVE) 09/11/20 09/11/20 09/11/20 Range/Units 17:16 17:16 15:17 WBC (4.0-10.5) K/mm3 RBC (4.1-5.6) M/mm3 Hgb (12.5-18.0) gm/dl Hct (42-50) % MCV (78-100) fl MCH (26-32) pg MCHC (32-36) g/dl RDW (11.5-14.0) % Plt Count (150-450) K/mm3 MPV (7.5-11.0) fl Gran % (36.0-66.0) % Eos # (Auto) (0-0.5) Absolute Lymphs (auto) (1.0-4.6) Absolute Monos (auto) (0.0-1.3) Lymphocytes % (24.0-44.0) % Monocytes % (0.0-12.0) % Eosinophils % (0.00-5.0) % Basophils % (0.0-0.4) % Absolute Granulocytes (1.4-6.9) Basophils # (0-0.4) ESR (0-15) mm/hr Sodium (137-145) mmol/L Potassium (3.5-5.1) mmol/L Chloride (98-107) mmol/L Carbon Dioxide (22-30) mmol/L Anion Gap (5-15) MEQ/L BUN (9-20) mg/dL Creatinine (0.66-1.25) mg/dL Estimated GFR ML/MIN Glucose (74-106) mg/dL Lactic Acid (0.4-2.0) Calcium (8.4-10.2) mg/dL Total Bilirubin (0.2-1.3) mg/dL AST (17-59) U/L ALT (0-50) U/L Alkaline Phosphatase (38-126) U/L Troponin I < 0.012 (0.000-0.034) ng/mL Serum Total Protein (6.3-8.2) g/dL Albumin (3.5-5.0) g/dL Amylase (30-110) U/L Lipase (23-300) U/L Urine Color YELLOW (YELLOW) Urine Appearance CLEAR (CLEAR) Urine pH 6.0 (5-6) Ur Specific [place] 1.016 (1.005-1.025) Urine Protein NEGATIVE (Negative) Urine Ketones NEGATIVE (NEGATIVE) Urine Blood MODERATE (0-5) Adama/ul Urine Nitrite NEGATIVE (NEGATIVE) Urine Bilirubin NEGATIVE (NEGATIVE) Urine Urobilinogen NEGATIVE (0-1) mg/dL Ur Leukocyte Esterase NEGATIVE (NEGATIVE) Urine WBC (Auto) 0-2 (0-5) /HPF Urine RBC (Auto) 3-5 (0-2) /HPF U Epithel Cells (Auto) NONE (FEW) /HPF Urine Bacteria (Auto) NONE (NEGATIVE) /HPF Urine Mucus (Auto) SLIGHT (NEGATIVE) /HPF Urine Culture Reflexed NO (NO) Urine Glucose NEGATIVE (NEGATIVE) mg/dL Urine Opiates Level POSITIVE (NEGATIVE) Ur Methadone NEGATIVE (NEGATIVE) Urine Barbiturates NEGATIVE (NEGATIVE) Ur Phencyclidine (PCP) NEGATIVE (NEGATIVE) Urine Amphetamine NEGATIVE (NEGATIVE) U Benzodiazepine Level NEGATIVE (NEGATIVE) Urine Cocaine NEGATIVE (NEGATIVE) Urine Marijuana (THC) NEGATIVE (NEGATIVE) 09/11/20 09/11/20 09/11/20 Range/Units 15:17 15:17 15:04 WBC 7.1 (4.0-10.5) K/mm3 RBC 4.66 (4.1-5.6) M/mm3 Hgb 14.4 (12.5-18.0) gm/dl Hct 42.7 (42-50) % MCV 91.6 (78-100) fl MCH 30.9 (26-32) pg MCHC 33.7 (32-36) g/dl RDW 12.6 (11.5-14.0) % Plt Count 160 (150-450) K/mm3 MPV 9.5 (7.5-11.0) fl Gran % 67.7 H (36.0-66.0) % Eos # (Auto) 0.10 (0-0.5) Absolute Lymphs (auto) 1.70 (1.0-4.6) Absolute Monos (auto) 0.48 (0.0-1.3) Lymphocytes % 23.9 L (24.0-44.0) % Monocytes % 6.7 (0.0-12.0) % Eosinophils % 1.4 (0.00-5.0) % Basophils % 0.3 (0.0-0.4) % Absolute Granulocytes 4.82 (1.4-6.9) Basophils # 0.02 (0-0.4) ESR 1 (0-15) mm/hr Sodium 138 (137-145) mmol/L Potassium 3.7 (3.5-5.1) mmol/L Chloride 102 (98-107) mmol/L Carbon Dioxide 29 (22-30) mmol/L Anion Gap 10.0 (5-15) MEQ/L BUN 15 (9-20) mg/dL Creatinine 0.75 (0.66-1.25) mg/dL Estimated GFR > 60.0 ML/MIN Glucose 107 H (74-106) mg/dL Lactic Acid 1.4 (0.4-2.0) Calcium 9.5 (8.4-10.2) mg/dL Total Bilirubin 0.40 (0.2-1.3) mg/dL AST 23 (17-59) U/L ALT 21 (0-50) U/L Alkaline Phosphatase 51 (38-126) U/L Troponin I (0.000-0.034) ng/mL Serum Total Protein 6.8 (6.3-8.2) g/dL Albumin 4.4 (3.5-5.0) g/dL Amylase (30-110) U/L Lipase (23-300) U/L Urine Color (YELLOW) Urine Appearance (CLEAR) Urine pH (5-6) Ur Specific [place] (1.005-1.025) Urine Protein (Negative) Urine Ketones (NEGATIVE) Urine Blood (0-5) Ad[place]/ul Urine Nitrite (NEGATIVE) Urine Bilirubin (NEGATIVE) Urine Urobilinogen (0-1) mg/dL Ur Leukocyte Esterase (NEGATIVE) Urine WBC (Auto) (0-5) /HPF Urine RBC (Auto) (0-2) /HPF U Epithel Cells (Auto) (FEW) /HPF Urine Bacteria (Auto) (NEGATIVE) /HPF Urine Mucus (Auto) (NEGATIVE) /HPF Urine Culture Reflexed (NO) Urine Glucose (NEGATIVE) mg/dL Urine Opiates Level (NEGATIVE) Ur Methadone (NEGATIVE) Urine Barbiturates (NEGATIVE) Ur Phencyclidine (PCP) (NEGATIVE) Urine Amphetamine (NEGATIVE) U Benzodiazepine Level (NEGATIVE) Urine Cocaine (NEGATIVE) Urine Marijuana (THC) (NEGATIVE) - Progress Progress: improved Air Movement: good Blood Culture(s) Obtained: No Antibiotics given: No - Departure Departure Disposition: Home Clinical Impression: Hypertension Condition: Stable Critical Care Time: No Referrals: MALU SCHENIDER [Primary Care Provider] - Instructions: Headache, Adult (DC) Prescriptions: Ondansetron ODT 4 MG [Zofran Odt 4 mg] 4 mg PO Q6H PRN PRN #10 tab.rapdis PRN Reason: Vomiting Amlodipine Besylate [Norvasc] 10 mg PO DAILY 30 Days #30 tablet
[2020-09-11 17:30] LABS: Appearance CLEAR (CLEAR); Bilirubin NEGATIVE (NEGATIVE); Blood MODERATE Ery/ul (0-5); Glucose NEGATIVE (NEGATIVE); Ketones NEGATIVE (NEGATIVE); Leukocyte Esterase NEGATIVE (NEGATIVE); Mucus SLIGHT /HPF (NEGATIVE); Nitrite NEGATIVE (NEGATIVE); Protein,Urine Dip NEGATIVE (Negative); Specific Gravity 1.016 (1.005-1.025); Urobilinogen NEGATIVE mg/dL (0-1); WBC 0-2 /HPF (0-5)
[2020-09-11] MEDS ORDERED: Zofran 4 MG/2 ML VIAL ONE (17:31)
[2020-09-11 17:38] LABS: Amphetamine,Urine NEGATIVE (NEGATIVE); Barbiturate,Urine NEGATIVE (NEGATIVE); Benzodiazepine,Urine NEGATIVE (NEGATIVE); Cocaine,Urine NEGATIVE (NEGATIVE); Methadone,Urine NEGATIVE (NEGATIVE); Opiate,Urine POSITIVE (NEGATIVE); PCP,Urine NEGATIVE (NEGATIVE); THC,Urine NEGATIVE (NEGATIVE)
[2020-09-11 18:14] LABS: ALBUMIN 4.3 g/dL (3.5-5.0); ALKALINE PHOSPHATASE 53 U/L (38-126); AMYLASE 76 U/L (30-110); ANION GAP 8.9 MEQ/L (5-15); BLOOD UREA NITROGEN 15 mg/dL (9-20); CHLORIDE 103 mmol/L (98-107); Calcium 9.5 mg/dL (8.4-10.2); Carbon Dioxide 26 mmol/L (22-30); Creatinine 1 0.65 mg/dL (0.66-1.25); EST GLOMERULAR FILTRATION RATE > 60.0 ML/MIN; Glucose 107 mg/dL (74-106); LIPASE 109 U/L (23-300); Potassium 3.8 mmol/L (3.5-5.1); SGOT/AST 23 U/L (17-59); SGPT/ALT 22 U/L (0-50); SODIUM 134 mmol/L (137-145); Total Protein 6.8 g/dL (6.3-8.2)
[2020-09-11] MEDS ORDERED: TORAdol 30 mg Injection IV ONE (18:23)
[2020-09-11] MEDS ORDERED: Imitrex 6 MG/0.5 ML SQ ONE (18:27)
[2020-09-11] MEDS ORDERED: TORAdol 30 mg Injection ONE (18:27)
[2020-09-11] MEDS: APRESOLINE 20 MG/ML INJ IV ONE ×2 (18:29→18:39)
[2020-09-11] MEDS: Imitrex 6 MG/0.5 ML SQ STA ×2 (18:30→19:10)
[2020-09-11] MEDS ORDERED: Zofran 4 MG/2 ML VIAL IV ONE (18:50)
[2020-09-11 19:07] VITALS: O2SAT 93
[2020-09-11 19:50] VITALS: BP 135/81; PULSE 72
[2020-09-11] MEDS ORDERED: Compazine 5 MG PO ONE (20:06)
--- NOTE | 2020-09-11 22:26 | XRAY ---
Indication: Headache. Elevated blood pressure. Multiple contiguous axial images obtained through the head without contrast. Comparison: June 17, 2016. Normal appearing brain parenchyma, ventricles, and bony calvarium. 1 cm right maxillary sinus polyp/retention cyst. Remaining visualized paranasal sinuses and mastoid air cells are clear. Impression: Right maxillary sinus polyp/retention cyst. Remaining CT head without contrast exam is negative. Comment: Preliminary interpretation was made by [facility]. No critical discrepancy.
--- NOTE | 2020-09-12 09:23 | XRAY ---
Exam: CT of the abdomen and pelvis with IV contrast from 09/11/2020. CTDI: 15.06 mGy Comparison: None. Indication: 49-year-old male with history of epigastric abdominal pain with vomiting; history of prior cholecystectomy. Technique: Post-IV contrast axial images were obtained through the abdomen and pelvis during automated injection of 100 cc of Isovue-370 contrast material. Delayed axial images were obtained as well. No oral contrast was administered. Reconstructed coronal and sagittal images were created and reviewed. Findings: The visualized lung bases reveal mild bibasilar posterior dependent linear atelectasis. The liver is of normal size. On axial images #16 and #17 of series 2, there is an 8 mm hypodense lesion within the upper posterior right hepatic lobe which is too small to characterize, but likely represents a small hepatic cyst. There is a second 4 mm in diameter hypoattenuated lesion within the upper posterior right hepatic lobe on axial image #21 of series 2 which is also too small to characterize, but likely represents a tiny cyst. The remainder of the liver appears unremarkable. No intrahepatic or extrahepatic biliary duct distention is seen. Surgical clips consistent with prior cholecystectomy are noted within the right upper quadrant. There is no evidence of splenomegaly or focal splenic lesion. A mild amount of fluid and secretions is seen within the gastric fundus and proximal body portion of the stomach. There also appears to be a pill density within the posterior dependent portion of the body of the stomach. The pancreas appears unremarkable. There is a 1.5 cm hypodense, oval-shaped lesion within the lateral margin of the left adrenal gland, best seen on coronal image #102. This likely represents an adrenal adenoma. The remainder of the adrenal glands appear unremarkable. I note a 6 mm round apparent cortical cyst at the posterior margin of the upper pole of the left kidney. In addition, there is an apparent 9 mm cyst seen within the upper anterior aspect of the left kidney as seen on delayed image #34 of series 4. The kidneys are of average size and shape. No other renal mass or hydronephrosis is seen. No renal calculi or cortical scarring is seen. Both kidneys function on delayed images. Scans atherosclerotic vascular calcification is seen within the distal abdominal aorta. No abdominal aortic aneurysm or abnormal retroperitoneal lymphadenopathy is seen. The bowel does not appear dilated speaking against obstruction. A scattered fluid is seen within nondilated small bowel. The appendix appears unremarkable. A mild amount of scattered stool is seen throughout the colon. No free intraperitoneal air or ventral abdominal wall hernia is seen. The pelvis reveals no suspicious mass, lymphadenopathy, or free intraperitoneal fluid. The urinary bladder appears grossly unremarkable. Some small calcified phleboliths are seen on each side of midline within the lower pelvis. The seminal vesicles and prostate gland appear unremarkable. The skeleton reveals a small bone island within the right side of the sacrum. Moderate osteophytic spurring is seen anterior margin of the right sacroiliac joint. Mild lower lumbar facet joint arthropathy is seen at L5-S1, left greater than right. No fracture or other aggressive bone lesion is seen. Impression: 1. No acute intra-abdominal findings are seen. 2. A couple tiny low-attenuation lesions are seen within the liver, as discussed above, which are too small to fully characterize. Statistically, these most likely represent tiny hepatic cysts. 3. In addition, within the upper pole of the left kidney, there are 2 small hypoattenuated lesions which are also too small to accurately characterize. However, statistically these most likely represent tiny renal cysts. 4. Mild bilateral posterior dependent subsegmental atelectasis. 5. Small hypoattenuated lesion within the lateral limb of the left adrenal gland most consistent with a small adrenal adenoma. 6. Status post cholecystectomy.
== END 2020-09-11 20:57 | disposition home or self-care (01) ==
LOC: ED 14:43
DX: I10 Essential (primary) hypertension (principal)
CPT/HCPCS: 36000; 36415; 70450; 74177; 80053; 80307; 81001; 82150; 83605; 83690; 84484; 85025; 85652; 93005; 96372; 96374; 96375; 96376; 99285; J0360; J1170; J1885; J2405; J3030; A9270-GY

== ENCOUNTER 2020-09-12 15:10 | Observation (INO) | payer BC ==
[2020-09-12] MEDS ORDERED: Catapres 0.1 MG PO PRN (16:46)
[2020-09-12] MEDS ORDERED: Zofran 4 MG/2 ML VIAL IV PRN (16:50)
[2020-09-12] MEDS ORDERED: BENADRYL 50 MG/ML IV PRN (17:01)
[2020-09-12 18:37] LABS: INFLUENZA A NEGATIVE (NEGATIVE); INFLUENZA B NEGATIVE (NEGATIVE); RESPIRATORY SYNCTIAL VIRUS NEGATIVE (Negative)
[2020-09-12 19:35] LABS: Absolute Neutrophil Ct (ANC) 4.52 (1.4-6.9); BASOPHIL % 0.3 % (0.0-0.4); Basophil (Absolute #) 0.02 (0-0.4); Eosinophil (Absolute #) 0.07 (0-0.5); Hematocrit 44.8 % (42-50); Lymphocyte (Absolute #) 1.95 (1.0-4.6); Lymphocytes % 26.7 % (24.0-44.0); Mean Cell Volume 92.9 fl (78-100); Mean Corpuscular Hemoglobin 31.1 pg (26-32); Mean Corpuscular Hgb Concent. 33.5 g/dl (32-36); Mean Platelet Volume 10.1 fl (7.5-11.0); Monocyte (Absolute #) 0.75 (0.0-1.3); Monocytes % 10.3 % (0.0-12.0); Neutrophil % 61.7 % (36.0-66.0); Platelet Count 179 K/mm3 (150-450); Red Blood Count 4.82 M/mm3 (4.1-5.6); Red Cell Distribution Width 12.7 % (11.5-14.0); White Blood Count 7.3 K/mm3 (4.0-10.5)
[2020-09-12 19:40] LABS: AMYLASE 86 U/L (30-110); LIPASE 81 U/L (23-300)
[2020-09-12 19:43] LABS: ALBUMIN 4.4 g/dL (3.5-5.0); ALKALINE PHOSPHATASE 45 U/L (38-126); ANION GAP 10.8 MEQ/L (5-15); BLOOD UREA NITROGEN 20 mg/dL (9-20); CHLORIDE 103 mmol/L (98-107); Calcium 9.6 mg/dL (8.4-10.2); Carbon Dioxide 28 mmol/L (22-30); Creatinine 1 0.92 mg/dL (0.66-1.25); EST GLOMERULAR FILTRATION RATE > 60.0 ML/MIN; Glucose 99 mg/dL (74-106); Potassium 3.6 mmol/L (3.5-5.1); SGOT/AST 23 U/L (17-59); SGPT/ALT 20 U/L (0-50); SODIUM 138 mmol/L (137-145)
[2020-09-12 20:21] LABS: Appearance CLEAR (CLEAR); Bilirubin NEGATIVE (NEGATIVE); Blood MODERATE Ery/ul (0-5); Glucose NEGATIVE (NEGATIVE); Ketones NEGATIVE (NEGATIVE); Leukocyte Esterase NEGATIVE (NEGATIVE); Nitrite NEGATIVE (NEGATIVE); Protein,Urine Dip NEGATIVE (Negative); Specific Gravity 1.011 (1.005-1.025); Urobilinogen NEGATIVE mg/dL (0-1)
[2020-09-13] MEDS ORDERED: ACETAMINOPHEN PO PRN (07:47)
[2020-09-13] MEDS ORDERED: HYDROCODONE PO PRN (07:47)
[2020-09-13] MEDS ORDERED: TORAdol 30 mg Injection IV ONE (07:50)
[2020-09-13] MEDS ORDERED: TYLENOL 325 MG PO PRN (07:51)
[2020-09-13] MEDS ORDERED: HYDROCODONE-ACETAMIN 10-325 MG PO PRN (07:54)
[2020-09-13] MEDS ORDERED: NORVASC 5 MG PO SCH ×2 (10:00→22:00)
[2020-09-13] MEDS ORDERED: Cozaar 50 MG PO SCH (10:00)
[2020-09-13] MEDS ORDERED: NON-FORMULARY ITEM (Losartan Potassium [Losartan Potassium] 100 MG) PO SCH (10:00)
[2020-09-13] MEDS ORDERED: NON-FORMULARY ITEM (Amlodipine Besylate [Norvasc] 10 MG) PO SCH (10:00)
[2020-09-13] MEDS ORDERED: NON-FORMULARY ITEM (Omeprazole [Omeprazole] 20 MG) PO SCH (10:00)
[2020-09-13] MEDS ORDERED: Protonix 40MG Tablet PO SCH (10:00)
--- NOTE | 2020-09-13 19:59 | PCM.NOTE ---
Date and Time: 09/13/201958 OBJECTIVE DATA Vital Signs: Vital Signs - 24 hr Temp Pulse Resp BP Pulse Ox 09/13/20 16:00 99.4 F 70 23 159/90 93 L 09/13/20 12:00 98.5 F 68 12 147/90 93 L 09/13/20 07:21 98.4 F 70 19 131/75 93 L 09/13/20 04:00 97.9 F 63 111/63 95 09/13/20 00:00 98.1 F 67 16 117/63 94 L 09/12/20 20:00 98.5 F 80 18 157/89 93 L Pain Assessment - Last Documented Pain Intensity 2 Pain Scale Used 0-10 Pain Scale Intake and Output: Intake & Output 09/11/20 09/12/20 09/13/20 09/14/20 11:59 11:59 11:59 11:59 Intake Total 600 1680 Output Total 750 1400 Balance -150 280 Weight 113.3 kg Lab Results: Lab Results-Last 24 Hours 09/12/20 09/12/20 Range/Units 17:40 20:00 WBC 7.3 (4.0-10.5) K/mm3 RBC 4.82 (4.1-5.6) M/mm3 Hgb 15.0 (12.5-18.0) gm/dl Hct 44.8 (42-50) % MCV 92.9 (78-100) fl MCH 31.1 (26-32) pg MCHC 33.5 (32-36) g/dl RDW 12.7 (11.5-14.0) % Plt Count 179 (150-450) K/mm3 MPV 10.1 (7.5-11.0) fl Gran % 61.7 (36.0-66.0) % Eos # (Auto) 0.07 (0-0.5) Absolute Lymphs (auto) 1.95 (1.0-4.6) Absolute Monos (auto) 0.75 (0.0-1.3) Lymphocytes % 26.7 (24.0-44.0) % Monocytes % 10.3 (0.0-12.0) % Eosinophils % 1.0 (0.00-5.0) % Basophils % 0.3 (0.0-0.4) % Absolute Granulocytes 4.52 (1.4-6.9) Basophils # 0.02 (0-0.4) Urine Color YELLOW (YELLOW) Urine Appearance CLEAR (CLEAR) Urine pH 6.0 (5-6) Ur Specific [place] 1.011 (1.005-1.025) Urine Protein NEGATIVE (Negative) Urine Ketones NEGATIVE (NEGATIVE) Urine Blood MODERATE (0-5) Adama/ul Urine Nitrite NEGATIVE (NEGATIVE) Urine Bilirubin NEGATIVE (NEGATIVE) Urine Urobilinogen NEGATIVE (0-1) mg/dL Ur Leukocyte Esterase NEGATIVE (NEGATIVE) Urine WBC (Auto) 3-5 (0-5) /HPF Urine RBC (Auto) NONE (0-2) /HPF U Epithel Cells (Auto) NONE (FEW) /HPF Urine Bacteria (Auto) NONE (NEGATIVE) /HPF Urine Culture Reflexed NO (NO) Urine Glucose NEGATIVE (NEGATIVE) mg/dL
[2020-09-13] MEDS: PATIENT OWN MEDICATION PO SCH (21:49)
[2020-09-14 07:35] VITALS: BP 133/77; PULSE 73; O2SAT 92
[2020-09-14] MEDS: PATIENT OWN MEDICATION PO SCH (09:03)
--- NOTE | 2020-09-14 09:57 | PCM.DS ---
Discharge Summary Date of Admission: 09/12/20 15:10 Admitting Physician: YELENA CAMPBELL MD Primary Care Provider: MALU SCHNEIDER Allergies Allergies No Known Drug Allergies Allergy (Unverified 06/17/16 20:42) Hospital Summary - Vitals & Intake/Output Vital Signs: Vital Signs Temperature 98.5 F 09/14/20 07:34 Pulse Rate 73 09/14/20 07:34 Respiratory Rate 19 09/14/20 07:34 Blood Pressure 133/77 09/14/20 07:34 O2 Sat by Pulse Oximetry 92 L 09/14/20 07:34 Intake & Output: Intake & Output 09/11/20 09/12/20 09/13/20 09/14/20 11:59 11:59 11:59 11:59 Intake Total 600 2820 Output Total 750 3400 Balance -150 -580 Weight 113.3 kg - Lab Result Diagrams: 09/12/20 17:40 09/12/20 17:40 Final Diagnosis/Problem List - Final Discharge Diagnosis/Problem (1) Hypertension Status: Acute Code(s): I10 - ESSENTIAL (PRIMARY) HYPERTENSION (2) Hypertensive urgency Status: Acute Code(s): I16.0 - HYPERTENSIVE URGENCY - Discharge Disposition: Home, Self-Care Condition: Stable Prescriptions: Continue Omeprazole 20 mg PO DAILY Hydrocodone/Acetaminophen [Hydrocodone-Acetamin 10-300 mg] 1 each PO DAILY PRN PRN PRN Reason: Pain Losartan Potassium 100 mg PO DAILY Tadalafil [Cialis] 2.5 mg PO DAILY Ondansetron ODT 4 MG [Zofran Odt 4 mg] 4 mg PO Q6H PRN PRN #10 tab.rapdis PRN Reason: Vomiting Changed Amlodipine Besylate [Norvasc] 10 mg PO BID #30 Instructions: High Blood Pressure in Adults, Low Salt Diet Follow up with: YELENA CAMPBELL MD [ACTIVE STAFF] - 09/21/20 10:30 am Forms: Discharge Instructions
[2020-09-14] MEDS ORDERED: PATIENT OWN MEDICATION PO SCH ×3 (10:00)
== END 2020-09-14 10:35 | disposition home or self-care (01) ==
LOC: MED SURG 15:10
PROVIDERS: ADMIT Family Medicine; ATTEND Family Medicine
DX: I10 Essential (primary) hypertension (principal); I16.0 Hypertensive urgency; G43.909 Migraine, unspecified, not intractable, without status migrainosus; Z20.828 Contact with and (suspected) exposure to other viral communicable diseases; Z79.899 Other long term (current) drug therapy
CPT/HCPCS: 0241U; 36415; 80053; 81001; 82150; 83690; 85025; 93268; G0378; J1885; A9270-GY

== ENCOUNTER 2020-11-22 17:13 | Observation (INO) | payer BC ==
[2020-11-22] MEDS ORDERED: Sodium Chloride 0.9% 1000 ML 1,000 ML IV STA (17:16)
[2020-11-22] MEDS ORDERED: Hydromorphone 1 mg/ml Injection IV ONE (17:16)
[2020-11-22] MEDS ORDERED: Zofran 4 MG/2 ML VIAL IV ONE ×2 (17:16→19:27)
[2020-11-22] MEDS ORDERED: Zofran 4 MG/2 ML VIAL ONE ×2 (17:25→19:28)
[2020-11-22] MEDS ORDERED: Hydromorphone 1 mg/ml Injection ONE (17:25)
[2020-11-22] MEDS ORDERED: Sodium Chloride 0.9% 1000 ML 1,000 ML ONE (17:26)
[2020-11-22 17:32] LABS: Absolute Neutrophil Ct (ANC) 3.71 (1.4-6.9); BASOPHIL % 0.3 % (0.0-0.4); Basophil (Absolute #) 0.03 (0-0.4); Eosinophil % 2.3 % (0.00-5.0); Eosinophil (Absolute #) 0.25 (0-0.5); Hematocrit 40.5 % (42-50); Hemoglobin 13.7 gm/dl (12.5-18.0); Lymphocyte (Absolute #) 5.91 (1.0-4.6); Mean Cell Volume 91.2 fl (78-100); Mean Corpuscular Hemoglobin 30.9 pg (26-32); Mean Corpuscular Hgb Concent. 33.8 g/dl (32-36); Mean Platelet Volume 9.9 fl (7.5-11.0); Monocyte (Absolute #) 0.84 (0.0-1.3); Monocytes % 7.8 % (0.0-12.0); Neutrophil % 34.6 % (36.0-66.0); Platelet Count 200 K/mm3 (150-450); Red Blood Count 4.44 M/mm3 (4.1-5.6); Red Cell Distribution Width 12.4 % (11.5-14.0); White Blood Count 10.7 K/mm3 (4.0-10.5)
[2020-11-22] MEDS ORDERED: XYLOCAINE 1% HCL 20 ML MDV ONE ×2 (17:47)
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
[2020-11-22 17:50] LABS: ALBUMIN 4.6 g/dL (3.5-5.0); ALKALINE PHOSPHATASE 65 U/L (38-126); ANION GAP 15.1 MEQ/L (5-15); BLOOD UREA NITROGEN 14 mg/dL (9-20); CHLORIDE 108 mmol/L (98-107); Calcium 9.7 mg/dL (8.4-10.2); Carbon Dioxide 21 mmol/L (22-30); Creatinine 1 0.87 mg/dL (0.66-1.25); EST GLOMERULAR FILTRATION RATE > 60.0 ML/MIN; Glucose 123 mg/dL (74-106); Potassium 3.4 mmol/L (3.5-5.1); SGOT/AST 35 U/L (17-59); SGPT/ALT 29 U/L (0-50); SODIUM 140 mmol/L (137-145); Total Protein 6.9 g/dL (6.3-8.2)
[2020-11-22] MEDS ORDERED: Rocephin 1000 MG INJ IM ONE (18:43)
[2020-11-22] MEDS ORDERED: ROCEPHIN 1 Gm-D5w 50 ml Bag** 1 G/50 ML IVPB IV ONE (18:53)
[2020-11-22] MEDS ORDERED: ROCEPHIN 1 Gm-D5w 50 ml Bag** 1 G/50 ML IVPB IV STA (18:56)
[2020-11-22] MEDS ORDERED: Hydromorphone 1 mg/ml Injection IV PRN (21:42)
[2020-11-22] MEDS ORDERED: Sodium Chloride 0.9% 1000 ML 1,000 ML IV SCH (21:42)
[2020-11-22] MEDS ORDERED: Zofran 4 MG/2 ML VIAL IV PRN (21:42)
[2020-11-22] MEDS ORDERED: Erythromycin 3.5 GM OPHTH. OP ONE (21:42)
[2020-11-22] MEDS ORDERED: TYLENOL 325 MG PO PRN (21:42)
[2020-11-22] MEDS ORDERED: NORVASC 5 MG PO ONE (23:00)
[2020-11-22] MEDS ORDERED: Neurontin 100 MG PO ONE (23:00)
[2020-11-22] MEDS ORDERED: HYDROCODONE-ACETAMIN 10-325 MG PO PRN (23:00)
[2020-11-22 23:14] LABS: Slide Review 1 YES
[2020-11-23] MEDS ORDERED: MEDICATION INTERVENTION PO SCH (08:45)
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
[2020-11-23] MEDS ORDERED: NON-FORMULARY ITEM (Amlodipine Besylate [Norvasc] 10 MG) PO SCH (10:00)
[2020-11-23] MEDS ORDERED: Erythromycin 3.5 GM OPHTH. OP SCH (10:00)
[2020-11-23] MEDS ORDERED: ROCEPHIN 1 Gm-D5w 50 ml Bag** 1 G/50 ML IVPB IV SCH (10:00)
[2020-11-23] MEDS ORDERED: NON-FORMULARY ITEM (Omeprazole [Omeprazole] 20 MG) PO SCH (10:00)
[2020-11-23] MEDS ORDERED: Protonix 40MG Tablet PO SCH (10:00)
[2020-11-23] MEDS ORDERED: TADALAFIL 2.5 MG PO SCH (10:00)
[2020-11-23] MEDS ORDERED: NON-FORMULARY ITEM (Losartan Potassium [Losartan Potassium] 100 MG) PO SCH (10:00)
[2020-11-23] MEDS ORDERED: NORVASC 5 MG PO SCH (10:00)
[2020-11-23] MEDS ORDERED: Cozaar 50 MG PO SCH (10:00)
[2020-11-23 12:26] VITALS: BP 141/70; PULSE 120; O2SAT 93
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
[2020-11-23] MEDS ORDERED: Neurontin 100 MG PO SCH (22:00)
== END 2020-11-23 11:55 | disposition home or self-care (01) ==
LOC: ED 17:13 → MED SURG 21:41
PROVIDERS: ADMIT Family Medicine; ATTEND Family Medicine
DX: S01.112A Laceration without foreign body of left eyelid and periocular area, initial encounter (principal); S00.11XA Contusion of right eyelid and periocular area, initial encounter; R22.0 Localized swelling, mass and lump, head; W39.XXXA Discharge of firework, initial encounter; Z79.899 Other long term (current) drug therapy; I10 Essential (primary) hypertension; E78.00 Pure hypercholesterolemia, unspecified; Z20.828 Contact with and (suspected) exposure to other viral communicable diseases
CPT/HCPCS: 12013; 36000; 36415; 70450; 70486; 80053; 85025; 96360; 96374; 96375; 96376; 99285; U0003; 93268; J0696; J1170; J2405; A9270-GY; G0378

== ENCOUNTER 2021-07-25 17:59 | Emergency (ER) | payer BC ==
--- NOTE | 2021-07-25 18:11 | ERPHSYRPT ---
- History of Present Illness Time Seen by Provider: 07/25/21 18:11 Historian: patient, family Exam Limitations: no limitations Physician History: This 50-year-old white male patient of Dr. Coffey who presents with relatively sudden onset of substernal sharp chest pain that is nonradiating. He does see Dr. Paz, strap machine operator automatic for a cardiac ejection fraction of 42%. He has no cardiac stents. He has never been diagnosed with coronary disease or myocardial infarction. Patient does have some chronic pain issues and sees Dr. García for this. He has a history of hypertension gastroesophageal reflux disease and high cholesterol. Timing/Duration: today Quality: sharpness, stabbing Location: substernal, central Chest Pain Radiation: no radiation Severity of Pain-Max: moderate Severity of Pain-Current: moderate Associated Symptoms: denies symptoms Prior Chest Pain/Cardiac Workup: cardiac cath, echocardiography Nitro Today/Relief: no nitro taken today Aspirin Treatment Today: 81 mg x 4, provided by ED Allergies/Adverse Reactions: hydromorphone [From Dilaudid] Adverse Reaction (Intermediate, Verified 07/25/21 18:48) Nausea and Vomiting Home Medications: Losartan Potassium 100 mg PO DAILY 09/11/20 [History] Omeprazole 20 mg PO DAILY 09/11/20 [History] Tadalafil [Cialis] 2.5 mg PO DAILY 09/11/20 [History] Celecoxib 100 mg [celeBREX 100 MG] 200 mg PO DAILY 07/25/21 [History] Metformin HCl 500 mg [Glucophage 500 MG] 500 mg PO BID 07/25/21 [History] Oxycodone HCl/Acetaminophen [Oxycodone-Acetaminophen 5-325] 1 tab PO DAILY PRN 07/25/21 [History] Triamterene/Hydrochlorothiazid [Triamterene-Hctz 37.5-25 mg Tb] 1 dose PO DAILY 07/25/21 [History] Urine Leukocyte Test Strips [Azo] 1 dose PO DAILY 07/25/21 [History] Vitamin B Complex 1 tab PO DAILY 07/25/21 [History] Hx Tetanus, Diphtheria Vaccination/Date Given: Yes (2016) Hx Influenza Vaccination/Date Given: No Hx Pneumococcal Vaccination/Date Given: No Travel Risk - International Travel Have you traveled outside of the country in past 3 weeks: No - Coronavirus Screening Are you exhibiting any of the following symptoms?: No Close contact with a COVID-19 positive Pt in past 14-21 Days: No - Vaccine Status Have you recieved a Covid-19 vaccination: No - Review of Systems Constitutional: No Symptoms Eyes: No Symptoms Ears, Nose, & Throat: No Symptoms Respiratory: No Symptoms Cardiac: Chest Pain Abdominal/Gastrointestinal: No Symptoms Genitourinary Symptoms: No Symptoms Musculoskeletal: No Symptoms Skin: No Symptoms Neurological: No Symptoms Psychological: No Symptoms Endocrine: No Symptoms Hematologic/Lymphatic: No Symptoms Immunological/Allergic: No Symptoms All Other Systems: Reviewed and Negative - Past Medical History Pertinent Past Medical History: Yes Neurological History: No Pertinent History ENT History: No Pertinent History Cardiac History: High Cholesterol, Hypertension Respiratory History: No Pertinent History Endocrine Medical History: Other Musculoskeletal History: Degenerative Disk Disease, Osteoarthritis GI Medical History: No Pertinent History History: No Pertinent History Psycho-Social History: No Pertinent History Male Reproductive Disorders: No Pertinent History Other Medical History: MRI showed a benign cyst on the kidney, cyst in the thyroid,. sees Dr. Paz at [place] for "heart function 42%." - Past Surgical History Past Surgical History: Yes Neuro Surgical History: No Pertinent History Cardiac: No Pertinent History Respiratory: No Pertinent History Gastrointestinal: Cholecystectomy Genitourinary: No Pertinent History Musculoskeletal: Orthopedic Surgery Male Surgical History: No Pertinent History Other Surgical History: cyst removal from left hand, skin graft rt ankle, R meniscus surgery. Lasik surgery - Social History Smoking Status: Former smoker How long have you smoked: appx 18 yr Exposure to second hand smoke: No Drug Use: none Patient Lives Alone: No - Nursing Vital Signs Nursing Vital Signs: Initial Vital Signs Temperature 98 F 07/25/21 18:00 Pulse Rate 94 H 07/25/21 18:00 Respiratory Rate 22 07/25/21 18:00 Blood Pressure 150/101 07/25/21 18:00 Pain Scale Pain Intensity 4 - Physical Exam General Appearance: mild distress (To moderate), alert, anxiety Eye Exam: PERRL/EOMI, eyes nml inspection Ears, Nose, Throat Exam: normal ENT inspection, moist mucous membranes Neck Exam: normal inspection, non-tender, supple, full range of motion Respiratory Exam: normal breath sounds, chest tenderness, lungs clear, airway intact, No respiratory distress Cardiovascular Exam: regular rate/rhythm, normal heart sounds, normal peripheral pulses Gastrointestinal/Abdomen Exam: soft, normal bowel sounds, No tenderness Rectal Exam: not done Back Exam: normal inspection, normal range of motion, No CVA tenderness, No vertebral tenderness Extremity Exam: normal inspection, normal range of motion, pelvis stable Neurologic Exam: alert, oriented x 3, cooperative, shear operator helper II-XII nml as tested, normal mood/affect, nml cerebellar function, nml station & gait, sensation nml Skin Exam: normal color, warm, dry Lymphatic Exam: No adenopathy SpO2 Interpretation: normal O2 Delivery: Room Air - Course Nursing assessment & vital signs reviewed: Yes EKG Interpreted by Me: RATE (90), Sinus Rhythm, NORMAL AXIS, NORMAL INTERVALS, NORMAL QRS, NORMAL ST-T, Other (There are abnormal inferior Q waves. These were present on the EKG dated 11/22/2020. There are no acute changes on today's EKG. There is no significant changes from the prior comparison EKG ) Ordered Tests: Active Orders 24 hr Category Date Time Status EKG-ER Only STAT Care 07/25/21 18:12 Active IV Insertion STAT Care 07/25/21 18:12 Active Pulse Oximetry (ED) STAT Care 07/25/21 18:12 Active CHEST 1 VIEW (PORTABLE) Stat Exams 07/25/21 18:23 Taken CBC W DIFF Stat Lab 07/25/21 18:10 Completed CMP Stat Lab 07/25/21 18:10 Completed D-DIMER QUANTITATIVE Stat Lab 07/25/21 18:10 Completed NT PRO BNP Stat Lab 07/25/21 18:10 Completed PROTIME WITH INR Stat Lab 07/25/21 18:10 Completed TROPONIN Q3H Lab 07/25/21 18:10 Completed TROPONIN Q3H Lab 07/25/21 21:18 Completed TROPONIN Q3H Lab 07/26/21 00:15 Ordered TROPONIN Q3H Lab 07/26/21 03:15 Ordered TROPONIN Q3H Lab 07/26/21 06:15 Ordered Medication Summary Discontinued Medications Generic Name Dose Route Start Last Admin Trade Name Freq PRN Reason Stop Dose Admin Aspirin 324 mg 07/25/21 18:12 07/25/21 18:26 Aspirin 81 Mg Tab.Chew PO 07/25/21 18:13 324 mg STAT ONE Administration Morphine Sulfate 4 mg 07/25/21 18:30 07/25/21 18:41 Morphine Sulfate 4 Mg/Ml Injection IV 07/25/21 18:31 4 mg STAT ONE Administration Morphine Sulfate Confirm 07/25/21 18:32 Morphine Sulfate 4 Mg/Ml Injection Administered 07/25/21 18:33 Dose 4 mg .ROUTE .STK-MED ONE Morphine Sulfate 4 mg 07/25/21 19:37 07/25/21 19:51 Morphine Sulfate 4 Mg/Ml Injection IV 07/25/21 19:38 4 mg STAT ONE Administration Morphine Sulfate Confirm 07/25/21 19:50 Morphine Sulfate 4 Mg/Ml Injection Administered 07/25/21 19:51 Dose 4 mg .ROUTE .STK-MED ONE Ondansetron HCl 4 mg 07/25/21 18:30 07/25/21 18:42 Ondansetron Hcl 4 Mg/2 Ml Vial IV 07/25/21 18:31 4 mg STAT ONE Administration Ondansetron HCl Confirm 07/25/21 18:32 Ondansetron Hcl 4 Mg/2 Ml Vial Administered 07/25/21 18:33 Dose 4 mg .ROUTE .STK-MED ONE Lab/Rad Data: Laboratory Result Diagrams 07/25/21 18:10 07/25/21 18:10 Laboratory Results 07/25/21 07/25/21 07/25/21 Range/Units 21:18 18:10 18:10 WBC (4.0-10.5) K/mm3 RBC (4.1-5.6) M/mm3 Hgb (12.5-18.0) gm/dl Hct (42-50) % MCV (78-100) fl MCH (26-32) pg MCHC (32-36) g/dl RDW (11.5-14.0) % Plt Count (150-450) K/mm3 MPV (7.5-11.0) fl Gran % (36.0-66.0) % Eos # (Auto) (0-0.5) Absolute Lymphs (auto) (1.0-4.6) Absolute Monos (auto) (0.0-1.3) Lymphocytes % (24.0-44.0) % Monocytes % (0.0-12.0) % Eosinophils % (0.00-5.0) % Basophils % (0.0-0.4) % Absolute Granulocytes (1.4-6.9) Basophils # (0-0.4) PT 10.5 (9.4-12.5) SECONDS INR 0.89 (0.8-3.0) D-Dimer 541 H* (215-500) ng/mL Sodium (137-145) mmol/L Potassium (3.5-5.1) mmol/L Chloride (98-107) mmol/L Carbon Dioxide (22-30) mmol/L Anion Gap (5-15) MEQ/L BUN (9-20) mg/dL Creatinine (0.66-1.25) mg/dL Estimated GFR ML/MIN Glucose (74-106) mg/dL Calcium (8.4-10.2) mg/dL Total Bilirubin (0.2-1.3) mg/dL AST (17-59) U/L ALT (0-50) U/L Alkaline Phosphatase (38-126) U/L Troponin I < 0.012 < 0.012 (0.000-0.034) ng/mL NT-Pro-B Natriuret Pep (0-450) pg/mL Serum Total Protein (6.3-8.2) g/dL Albumin (3.5-5.0) g/dL 07/25/21 07/25/21 Range/Units 18:10 18:10 WBC 11.9 H (4.0-10.5) K/mm3 RBC 5.48 (4.1-5.6) M/mm3 Hgb 16.4 (12.5-18.0) gm/dl Hct 48.1 (42-50) % MCV 87.8 (78-100) fl MCH 29.9 (26-32) pg MCHC 34.1 (32-36) g/dl RDW 12.6 (11.5-14.0) % Plt Count 192 (150-450) K/mm3 MPV 9.8 (7.5-11.0) fl Gran % 64.4 (36.0-66.0) % Eos # (Auto) 0.17 (0-0.5) Absolute Lymphs (auto) 3.23 (1.0-4.6) Absolute Monos (auto) 0.80 (0.0-1.3) Lymphocytes % 27.2 (24.0-44.0) % Monocytes % 6.7 (0.0-12.0) % Eosinophils % 1.4 (0.00-5.0) % Basophils % 0.3 (0.0-0.4) % Absolute Granulocytes 7.63 H (1.4-6.9) Basophils # 0.03 (0-0.4) PT (9.4-12.5) SECONDS INR (0.8-3.0) D-Dimer (215-500) ng/mL Sodium 140 (137-145) mmol/L Potassium 4.0 (3.5-5.1) mmol/L Chloride 105 (98-107) mmol/L Carbon Dioxide 27 (22-30) mmol/L Anion Gap 12.8 (5-15) MEQ/L BUN 22 H (9-20) mg/dL Creatinine 0.84 (0.66-1.25) mg/dL Estimated GFR > 60.0 ML/MIN Glucose 93 (74-106) mg/dL Calcium 10.5 H (8.4-10.2) mg/dL Total Bilirubin 0.70 (0.2-1.3) mg/dL AST 46 (17-59) U/L ALT 80 H (0-50) U/L Alkaline Phosphatase 66 (38-126) U/L Troponin I (0.000-0.034) ng/mL NT-Pro-B Natriuret Pep 12.7 (0-450) pg/mL Serum Total Protein 8.1 (6.3-8.2) g/dL Albumin 5.2 H (3.5-5.0) g/dL - Progress Progress: improved Air Movement: good Progress Note: 07/25/21 19:12 Chest x-ray shows no acute cardiopulmonary process. 07/25/21 19:50 Patient states that his chest pain has improved. Is now just a mild pressure. 07/25/21 22:09 Medical decision making: This patient no longer has chest pain. I will contact Dr. Paz, the patient's strap machine operator automatic to give him an update and see if there is any other testing he wants done for the patient. Patient's repeat troponin is within normal limits. His twelve-lead EKG at 9:51 PM on 07/25/2021 shows a normal sinus rhythm with a heart rate of 77. There are no changes from the EKG earlier today. 07/25/21 22:17 Dr. Ramirez, strap machine operator automatic on-call for Dr. Paz the patient's strap machine operator automatic called back and I reviewed the patient history, x-ray findings, 2 separate EKG findings and the laboratory results. I also discussed with him the very slightly elevated D-dimer. Dr. Ramirez feels that the patient can be discharged to home. Patient no longer has chest pain. He is not short of breath he is oxygenating well. Patient will call Dr. Paz's office tomorrow morning to make arrange for follow-up appointment. Blood Culture(s) Obtained: No Antibiotics given: No Counseled pt/family regarding: lab results, diagnosis, need for follow-up, rad results - Departure Departure Disposition: Home Clinical Impression: Non-cardiac chest pain Condition: Stable Critical Care Time: No Referrals: VIDAL COFFEY [Primary Care Provider] - Follow up/PCP as directed Additional Instructions: Take all your medication as prescribed. Follow-up with Dr. Paz's office by phone to make arrangements for an appointment.
[2021-07-25] MEDS ORDERED: BABY ASPIRIN 81 MG CHEW PO ONE (18:12)
[2021-07-25 18:24] LABS: Absolute Neutrophil Ct (ANC) 7.63 (1.4-6.9); Basophil (Absolute #) 0.03 (0-0.4); Eosinophil % 1.4 % (0.00-5.0); Eosinophil (Absolute #) 0.17 (0-0.5); Hematocrit 48.1 % (42-50); Hemoglobin 16.4 gm/dl (12.5-18.0); Lymphocyte (Absolute #) 3.23 (1.0-4.6); Lymphocytes % 27.2 % (24.0-44.0); Mean Cell Volume 87.8 fl (78-100); Mean Corpuscular Hemoglobin 29.9 pg (26-32); Mean Corpuscular Hgb Concent. 34.1 g/dl (32-36); Mean Platelet Volume 9.8 fl (7.5-11.0); Monocytes % 6.7 % (0.0-12.0); Neutrophil % 64.4 % (36.0-66.0); Platelet Count 192 K/mm3 (150-450); Red Blood Count 5.48 M/mm3 (4.1-5.6); Red Cell Distribution Width 12.6 % (11.5-14.0); White Blood Count 11.9 K/mm3 (4.0-10.5)
[2021-07-25 18:28] LABS: INR 0.89 (0.8-3.0); PROTIME 10.5 SECONDS (9.4-12.5)
[2021-07-25] MEDS ORDERED: Zofran 4 MG/2 ML VIAL IV ONE (18:30)
[2021-07-25] MEDS ORDERED: MORPHINE SULFATE 4 MG INJ IV ONE ×2 (18:30→19:37)
[2021-07-25] MEDS ORDERED: MORPHINE SULFATE 4 MG INJ ONE ×2 (18:32→19:50)
[2021-07-25] MEDS ORDERED: Zofran 4 MG/2 ML VIAL ONE (18:32)
[2021-07-25 18:46] LABS: ALBUMIN 5.2 g/dL (3.5-5.0); ALKALINE PHOSPHATASE 66 U/L (38-126); ANION GAP 12.8 MEQ/L (5-15); BLOOD UREA NITROGEN 22 mg/dL (9-20); CHLORIDE 105 mmol/L (98-107); Calcium 10.5 mg/dL (8.4-10.2); Carbon Dioxide 27 mmol/L (22-30); Creatinine 1 0.84 mg/dL (0.66-1.25); EST GLOMERULAR FILTRATION RATE > 60.0 ML/MIN; Glucose 93 mg/dL (74-106); NT PRO BNP 12.7 pg/mL (0-450); SGOT/AST 46 U/L (17-59); SGPT/ALT 80 U/L (0-50); SODIUM 140 mmol/L (137-145); Total Protein 8.1 g/dL (6.3-8.2)
[2021-07-25 22:24] VITALS: BP 124/85; PULSE 76; O2SAT 95
--- NOTE | 2021-07-26 08:46 | XRAY ---
Indication: Chest pain radiating neck. Comparison: June 17, 2016. Portable chest less inflated again with minimal lingula fibrosis/scarring. No focal infiltrate, consolidation, or large effusion. Heart and mediastinal structures within normal limits. Bony thorax intact. Impression: Nonacute chest with chronic feature.
== END 2021-07-25 22:39 | disposition home or self-care (01) ==
LOC: ED 17:59
DX: R07.89 Other chest pain (principal); E78.5 Hyperlipidemia, unspecified; I10 Essential (primary) hypertension; Z79.891 Long term (current) use of opiate analgesic; Z79.899 Other long term (current) drug therapy
CPT/HCPCS: 36000; 36415; 71045; 80053; 83880; 84484; 85025; 85379; 85610; 93005; 94760; 96374; 96375; 99284; J2270; J2405; A9270-GY

== ENCOUNTER 2023-11-30 20:52 | Observation (INO) | payer BC ==
--- NOTE | 2023-11-30 21:31 | ERPHSYRPT ---
- History of Present Illness Time Seen by Provider: 11/30/23 21:15 Historian: patient Exam Limitations: no limitations Patient Subjective Stated Complaint: pt states that he said he began having severe stomach pain at a ball game today Triage Nursing Assessment: pt ambulated into the er; pt is axo x4; c/o abd pain; pt states 5/10 to RUQ; abd round, soft, non tender; active bowel sounds in all quads; pt denies N/V, c/o diarrhea; skin PDW; no respiratory distress present; vitals wnl Physician History: The patient, with a history of gallbladder removal, presented with severe abdominal pain located in the right upper quadrant. The pain was not present at the time of consultation but had been extreme earlier. The patient denied any history of pancreatic issues or heavy alcohol consumption, reporting only occasional alcohol intake during holidays. They reported a history of high cholesterol and triglycerides. The patient noted that the pain worsened with food intake, and that the day of the consultation was the worst they had experienced. Previously, the pain would subside after eating, but on this day, it persisted. They had not taken any medication for the pain, such as Gas-X, as they were still feeling full from lunch. They reported burping up their lunch despite eating it before noon. The patient reported experiencing diarrhea and had noticed a change in their stool color to shahid about three days prior to the consultation. They also noted a different, more unpleasant odor from their bowel movements. The pain seemed to shift and subside before returning intensely. They denied any dysuria, chest pain, dyspnea, leg swelling, fever, or chills. The patient also reported taking oxycodone for back and shoulder pain, which they had been using less frequently since receiving a steroid shot in their right shoulder earlier in the month. Timing/Duration: today Activities at Onset: rest Quality: sharpness, stabbing Abdominal Pain Onset Location: RUQ, epigastric Pain Radiation: no radiation Severity of Pain-Max: severe Severity of Pain-Current: moderate Modifying Factors: Worsens With: eating Associated Symptoms: heartburn, loss of appetite, nausea, No chest pain, No diap horesis, No diarrhea, No fever/chills, No vomiting Previous symptoms: no prior history Allergies/Adverse Reactions: hydromorphone [From Dilaudid] Adverse Reaction (Intermediate, Verified 11/30/23 21:02) Nausea and Vomiting Home Medications: Losartan Potassium 100 mg PO DAILY 09/11/20 [History] Omeprazole 20 mg PO DAILY 09/11/20 [History] Oxycodone HCl/Acetaminophen [Oxycodone-Acetaminophen 5-325] 1 tab PO DAILY PRN 07/25/21 [History] Triamterene/Hydrochlorothiazid [Triamterene-Hctz 37.5-25 mg Tb] 1 dose PO DAILY 07/25/21 [History] Paroxetine HCl 20 mg [Paxil 20 MG] 20 mg PO DAILY 11/30/23 [History] Simvastatin [Zocor] 20 mg PO DAILY 11/30/23 [History] Hx Tetanus, Diphtheria Vaccination/Date Given: Yes (2016) Hx Influenza Vaccination/Date Given: No Hx Pneumococcal Vaccination/Date Given: No Travel Risk - International Travel Have you traveled outside of the country in past 3 weeks: No - Emerging Infectious Disease Are you exhibiting symptoms associated with any current EIDs: No - Review of Systems All Other Systems: Reviewed and Negative - Past Medical History Pertinent Past Medical History: Yes Neurological History: No Pertinent History ENT History: No Pertinent History Cardiac History: High Cholesterol, Hypertension Respiratory History: Bronchitis, Pneumonia, Other Endocrine Medical History: Other Musculoskeletal History: Other GI Medical History: No Pertinent History History: No Pertinent History Psycho-Social History: Anxiety Male Reproductive Disorders: No Pertinent History Other Medical History: cholecystectomy, R knee meniscal tear, 30-40% arterial blockage, pre-diabetic, sinusitis, R ankle fx (pediatric), R collarbone ([place], teenage) fx, R Great toe fx (high school), multiple L hand surgeries for cyst removals (2018). Thoracic Spondylosis ([facility] in [place] and has received injections which he reports have allowed him to resume his life) he reports that his last was performed in 06/12 and he receives an injection approximately every 7 months. - Past Surgical History Past Surgical History: Yes Neuro Surgical History: No Pertinent History Cardiac: No Pertinent History Respiratory: No Pertinent History Gastrointestinal: Cholecystectomy Genitourinary: No Pertinent History Musculoskeletal: Orthopedic Surgery Male Surgical History: No Pertinent History Other Surgical History: cyst removal from left hand, skin graft rt ankle, R meniscus surgery. Lasik surgery - Social History Smoking Status: Former smoker How long have you smoked: appx 18 yr Exposure to second hand smoke: No Drug Use: none Patient Lives Alone: No - Social Determinants of Health Will the patient participate in the screening: Yes Do you worry about a steady place to live?: No Do you have any problems with any of the following?: No known problems In the past 12 months,have you had to go without utilities?: No Transportation Issues: No Has anyone in your support network made you feel unsafe?: No Have you or anyone in your house had to go without enough: No - Nursing Vital Signs Nursing Vital Signs: Initial Vital Signs Pulse Rate 88 11/30/23 21:03 Blood Pressure 139/96 11/30/23 21:03 O2 Sat by Pulse Oximetry 95 11/30/23 21:03 Pain Scale Pain Intensity 5 - Physical Exam General Appearance: no apparent distress Respiratory Exam: normal breath sounds, lungs clear, airway intact, No chest tenderness, No respiratory distress Cardiovascular Exam: regular rate/rhythm, normal heart sounds, No capillary refill <2 sec, No edema Gastrointestinal/Abdomen Exam: soft, tenderness (RUQ, epigastric), distention, guarding, other (hypoactive BS), No rebound Back Exam: normal inspection, No CVA tenderness Neurologic Exam: alert, oriented x 3, cooperative Skin Exam: normal color, warm, dry SpO2 Interpretation: normal SpO2: 96 O2 Delivery: Room Air - Course Nursing assessment & vital signs reviewed: Yes EKG Interpreted by Me: RATE (81), Sinus Rhythm, NORMAL AXIS, NORMAL INTERVALS, NORMAL QRS, NORMAL ST-T - CT Exams Chest CT Interpretation: Tele-radiologist Report (pulmonary nodules), No PE, Other (No aortic disection) Abdomen/Pelvis CT Interpretation: Tele-radiologist Report, Other (dilated small bowel with defi nite caliber change, no obstructing lesion, adrenal gland lesion) Ordered Tests: Active Orders 24 hr Category Date Time Status Call Admit Doctor for Orders ON ADMISSION Care 12/01/23 02:53 Active Code Status Order ROUTINE Care 12/01/23 02:53 Active EKG-ER Only STAT Care 11/30/23 21:31 Completed IV Insertion STAT Care 11/30/23 21:31 Completed NGT [Gastric Tube Insertion] STAT Care 12/01/23 00:[address] in Observation ROUTINE Care 12/01/23 02:53 Active NPO Diet 12/01/23 02:53 Active ABDOMEN AND PELVIS W CONTRAST [CT] Stat Exams 11/30/23 21:32 Completed CHEST 1 VIEW (PORTABLE) Stat Exams 12/01/23 01:20 Taken CTA CHEST W AND/OR WO [CT] Stat Exams 11/30/23 21:33 Completed AMYLASE Stat Lab 11/30/23 21:45 Completed CBC W DIFF Stat Lab 11/30/23 21:45 Completed CMP Stat Lab 11/30/23 21:45 Completed Erythrocyte Sedimentation Rate Stat Lab 11/30/23 21:45 Completed LIPASE Stat Lab 11/30/23 21:45 Completed LIPID PROFILE Stat Lab 11/30/23 21:45 Completed Lactic Acid Stat Lab 11/30/23 21:31 Completed TROPONIN Q4H Lab 11/30/23 21:45 Completed TSH, 3RD Generation Stat Lab 11/30/23 21:45 Completed UA W/RFX UR CULTURE Stat Lab 12/01/23 00:45 Completed Transfer Order Routine Transfer 12/01/23 Completed Medication Summary Generic Name Dose Route Start Last Admin Trade Name Freq PRN Reason Stop Dose Admin Acetaminophen 650 mg 12/01/23 04:06 Acetaminophen 650 Mg Supp.Rect MS 12/31/23 04:05 Q4H PRN PRN PAIN AND/OR FEVER Enoxaparin Sodium 40 mg 12/01/23 10:00 Enoxaparin Sodium 40 Mg/0.4 Ml Syringe SQ 12/31/23 09:59 DAILY BANG Dextrose/Sodium Chloride 1,000 mls @ 100 mls/hr 12/01/23 04:15 Dextrose 5% -0.45 Nacl 1000 Ml IV 12/31/23 04:14 .Q10H BANG Ceftriaxone Sodium 1 gm in 100 mls @ 200 mls/hr 12/01/23 10:00 Rocephin 1 Gm / 100 Ml Nacl IV 12/31/23 09:59 Q24H10 BANG Non-Formulary Medication 100 mg 12/01/23 10:00 Losartan Potassium [Losartan Potassium] PO 12/31/23 09:59 DAILY BANG Non-Formulary Medication 20 mg 12/01/23 10:00 Omeprazole [Omeprazole] PO 12/31/23 09:59 DAILY BANG Ondansetron HCl 4 mg 12/01/23 04:06 Ondansetron Hcl 4 Mg/2 Ml Vial IV 12/31/23 04:05 Q6H PRN PRN NAUSEA/VOMITING Paroxetine HCl 20 mg 12/01/23 10:00 Paroxetine Hcl 20 Mg Tablet PO 12/31/23 09:59 DAILY BANG Simvastatin 20 mg 12/01/23 10:00 Simvastatin 20 Mg Tablet PO 12/31/23 09:59 DAILY BANG Discontinued Medications Generic Name Dose Route Start Last Admin Trade Name Freq PRN Reason Stop Dose Admin Benzocaine/Butamben/Tetracaine HCl 1 spray 12/01/23 00:54 12/01/23 00:57 Tetracaine/Benzocaine/Butamben 1 [place] TP 12/01/23 00:55 1 spray ONCE ONE Administration Benzocaine/Butamben/Tetracaine HCl Confirm 12/01/23 00:56 Tetracaine/Benzocaine/Butamben 1 [place] Administered 12/01/23 00:57 Dose 1 spray .ROUTE .STK-MED ONE Sodium Chloride 1,000 mls @ 999 mls/hr 11/30/23 21:31 11/30/23 22:58 Sodium Chloride 0.9% 1000 Ml IV 11/30/23 22:31 Infused .Q1H1M STA Infusion Sodium Chloride Confirm 11/30/23 21:48 Sodium Chloride 0.9% 1000 Ml Administered 11/30/23 21:49 Dose 1,000 mls @ ud .ROUTE .STK-MED ONE Ceftriaxone Sodium 1 gm in 100 mls @ 200 mls/hr 12/01/23 01:27 12/01/23 02:28 Rocephin 1 Gm / 100 Ml Nacl IV 12/01/23 01:56 Infused STAT ONE Infusion Metronidazole 500 mg in 100 mls @ 200 mls/hr 12/01/23 01:27 12/01/23 02:27 Flagyl 500 Mg Ivpb IV 12/01/23 01:56 Infused STAT STA Infusion Metronidazole Confirm 12/01/23 01:33 Flagyl 500 Mg Ivpb Administered 12/01/23 01:34 Dose 500 mg in 100 mls @ ud IV .STK-MED ONE Ceftriaxone Sodium Confirm 12/01/23 01:33 Rocephin 1 Gm / 100 Ml Nacl Administered 12/01/23 01:34 Dose 1 gm in 100 mls @ ud IV .STK-MED ONE Ondansetron HCl 8 mg 12/01/23 00:54 12/01/23 00:57 Ondansetron Hcl 4 Mg/2 Ml Vial IV 12/01/23 00:55 8 mg STAT ONE Administration Ondansetron HCl Confirm 12/01/23 00:56 Ondansetron Hcl 4 Mg/2 Ml Vial Administered 12/01/23 00:57 Dose 4 mg .ROUTE .STK-MED ONE Ondansetron HCl Confirm 12/01/23 00:58 Ondansetron Hcl 4 Mg/2 Ml Vial Administered 12/01/23 00:59 Dose 4 mg .ROUTE .STK-MED ONE Lab/Rad Data: Laboratory Result Diagrams 11/30/23 21:45 11/30/23 21:45 Laboratory Results 12/01/23 11/30/23 11/30/23 Range/Units 00:45 21:45 21:45 WBC (4.23-9.07) x10^3/uL RBC (4.63-6.08) x10^6/uL Hgb (13.7-17.5) g/dL Hct (40.1-51.0) % MCV (79.0-92.2) fL MCH (25.7-32.2) pg MCHC (32.3-36.5) g/dL RDW (11.6-14.4) % Plt Count (163-337) x10^3/uL MPV (9.4-12.4) fL Gran % (34.0-67.9) % Immature Gran % (Auto) (0.001-0.429) % Nucleat RBC Rel Count (0.00-0.2) % Eos # (Auto) (0.04-0.54) x10^3/uL Immature Gran # (Auto) (0.001-0.031) x10^3u/L Absolute Lymphs (auto) (1.32-3.57) x10^3/uL Absolute Monos (auto) (0.30-0.82) x10^3/uL Absolute Nucleated RBC (0.00-0.012) x10^3u/L Lymphocytes % (21.8-53.1) % Monocytes % (5.3-12.2) % Eosinophils % (0.8-7.0) % Basophils % (0.2-1.2) % Absolute Granulocytes (1.78-5.38) x10^3/uL Basophils # (0.01-0.08) x10^3/uL ESR (0-15) mm/hr Sodium (135-145) mmol/L Potassium (3.5-5.1) mmol/L Chloride (98-107) mmol/L Carbon Dioxide (22-30) mmol/L Anion Gap (5-15) MEQ/L BUN (9-20) mg/dL Creatinine (0.66-1.25) mg/dL Estimated GFR ML/MIN Glucose (74-106) mg/dL Lactic Acid (0.4-2.0) Calcium (8.4-10.2) mg/dL Total Bilirubin (0.2-1.3) mg/dL AST (17-59) U/L ALT (0-50) U/L Alkaline Phosphatase (38-126) U/L Troponin I < 0.012 (0.000-0.033) ng/mL Serum Total Protein (6.3-8.2) g/dL Albumin (3.5-5.0) g/dL Triglycerides (30-150) mg/dL Cholesterol (50-200) mg/dL LDL Cholesterol (30-100) mg/dL HDL Cholesterol (40-60) mg/dL Heart Disease Risk Ratio Amylase (30-110) U/L Lipase (23-300) U/L TSH 3rd Generation 0.994 (0.470-4.680) mIU/L Urine Color Yellow (Yellow) Urine Appearance Clear (Clear) Urine pH 5.5 (4.6-8.0) Ur Specific [place] >=1.030 A (1.005-1.030) Urine Protein Negative (Negative) Urine Glucose (UA) Negative (Negative) mg/dL Urine Ketones Negative (Negative) Urine Blood Negative (Negative) Urine Nitrite Negative (Negative) Urine Bilirubin Negative (Negative) Urine Urobilinogen 1.0 A (0.2) mg/dL Ur Leukocyte Esterase Negative (Negative) U Hyaline Cast (Auto) NONE SEEN (0-2) /LPF Urine Microscopic RBC 0-2 (0-5) /HPF Urine Microscopic WBC 0-2 (0-5) /HPF Ur Epithelial Cells None Seen (None Seen) /HPF Urine Bacteria None Seen (None Seen) /HPF Urine Culture Reflexed NO (NO) 11/30/23 11/30/23 11/30/23 Range/Units 21:45 21:45 21:45 WBC 10.7 H (4.23-9.07) x10^3/uL RBC 5.34 (4.63-6.08) x10^6/uL Hgb 16.3 (13.7-17.5) g/dL Hct 48.9 (40.1-51.0) % MCV 91.6 (79.0-92.2) fL MCH 30.5 (25.7-32.2) pg MCHC 33.3 (32.3-36.5) g/dL RDW 12.4 (11.6-14.4) % Plt Count 154 L (163-337) x10^3/uL MPV 9.7 (9.4-12.4) fL Gran % 84.8 H (34.0-67.9) % Immature Gran % (Auto) 0.4 (0.001-0.429) % Nucleat RBC Rel Count 0.0 (0.00-0.2) % Eos # (Auto) 0.21 (0.04-0.54) x10^3/uL Immature Gran # (Auto) 0.04 H (0.001-0.031) x10^3u/L Absolute Lymphs (auto) 0.72 L (1.32-3.57) x10^3/uL Absolute Monos (auto) 0.63 (0.30-0.82) x10^3/uL Absolute Nucleated RBC 0.00 (0.00-0.012) x10^3u/L Lymphocytes % 6.7 L (21.8-53.1) % Monocytes % 5.9 (5.3-12.2) % Eosinophils % 2.0 (0.8-7.0) % Basophils % 0.2 (0.2-1.2) % Absolute Granulocytes 9.11 H (1.78-5.38) x10^3/uL Basophils # 0.02 (0.01-0.08) x10^3/uL ESR 2 (0-15) mm/hr Sodium 143 (135-145) mmol/L Potassium 3.9 (3.5-5.1) mmol/L Chloride 107 (98-107) mmol/L Carbon Dioxide 27 (22-30) mmol/L Anion Gap 12.9 (5-15) MEQ/L BUN 26 H (9-20) mg/dL Creatinine 1.03 (0.66-1.25) mg/dL Estimated GFR 87.4 ML/MIN Glucose 129 H (74-106) mg/dL Lactic Acid (0.4-2.0) Calcium 10.0 (8.4-10.2) mg/dL Total Bilirubin 1.00 (0.2-1.3) mg/dL AST 41 (17-59) U/L ALT 60 H (0-50) U/L Alkaline Phosphatase 55 (38-126) U/L Troponin I (0.000-0.033) ng/mL Serum Total Protein 7.5 (6.3-8.2) g/dL Albumin 4.9 (3.5-5.0) g/dL Triglycerides 107 (30-150) mg/dL Cholesterol 197 (50-200) mg/dL LDL Cholesterol 104 H (30-100) mg/dL HDL Cholesterol 69 H (40-60) mg/dL Heart Disease Risk Ratio 3.0 Amylase 82 (30-110) U/L Lipase 48 (23-300) U/L TSH 3rd Generation (0.470-4.680) mIU/L Urine Color (Yellow) Urine Appearance (Clear) Urine pH (4.6-8.0) Ur Specific [place] (1.005-1.030) Urine Protein (Negative) Urine Glucose (UA) (Negative) mg/dL Urine Ketones (Negative) Urine Blood (Negative) Urine Nitrite (Negative) Urine Bilirubin (Negative) Urine Urobilinogen (0.2) mg/dL Ur Leukocyte Esterase (Negative) U Hyaline Cast (Auto) (0-2) /LPF Urine Microscopic RBC (0-5) /HPF Urine Microscopic WBC (0-5) /HPF Ur Epithelial Cells (None Seen) /HPF Urine Bacteria (None Seen) /HPF Urine Culture Reflexed (NO) 11/30/23 Range/Units 21:31 WBC (4.23-9.07) x10^3/uL RBC (4.63-6.08) x10^6/uL Hgb (13.7-17.5) g/dL Hct (40.1-51.0) % MCV (79.0-92.2) fL MCH (25.7-32.2) pg MCHC (32.3-36.5) g/dL RDW (11.6-14.4) % Plt Count (163-337) x10^3/uL MPV (9.4-12.4) fL Gran % (34.0-67.9) % Immature Gran % (Auto) (0.001-0.429) % Nucleat RBC Rel Count (0.00-0.2) % Eos # (Auto) (0.04-0.54) x10^3/uL Immature Gran # (Auto) (0.001-0.031) x10^3u/L Absolute Lymphs (auto) (1.32-3.57) x10^3/uL Absolute Monos (auto) (0.30-0.82) x10^3/uL Absolute Nucleated RBC (0.00-0.012) x10^3u/L Lymphocytes % (21.8-53.1) % Monocytes % (5.3-12.2) % Eosinophils % (0.8-7.0) % Basophils % (0.2-1.2) % Absolute Granulocytes (1.78-5.38) x10^3/uL Basophils # (0.01-0.08) x10^3/uL ESR (0-15) mm/hr Sodium (135-145) mmol/L Potassium (3.5-5.1) mmol/L Chloride (98-107) mmol/L Carbon Dioxide (22-30) mmol/L Anion Gap (5-15) MEQ/L BUN (9-20) mg/dL Creatinine (0.66-1.25) mg/dL Estimated GFR ML/MIN Glucose (74-106) mg/dL Lactic Acid 1.3 (0.4-2.0) Calcium (8.4-10.2) mg/dL Total Bilirubin (0.2-1.3) mg/dL AST (17-59) U/L ALT (0-50) U/L Alkaline Phosphatase (38-126) U/L Troponin I (0.000-0.033) ng/mL Serum Total Protein (6.3-8.2) g/dL Albumin (3.5-5.0) g/dL Triglycerides (30-150) mg/dL Cholesterol (50-200) mg/dL LDL Cholesterol (30-100) mg/dL HDL Cholesterol (40-60) mg/dL Heart Disease Risk Ratio Amylase (30-110) U/L Lipase (23-300) U/L TSH 3rd Generation (0.470-4.680) mIU/L Urine Color (Yellow) Urine Appearance (Clear) Urine pH (4.6-8.0) Ur Specific [place] (1.005-1.030) Urine Protein (Negative) Urine Glucose (UA) (Negative) mg/dL Urine Ketones (Negative) Urine Blood (Negative) Urine Nitrite (Negative) Urine Bilirubin (Negative) Urine Urobilinogen (0.2) mg/dL Ur Leukocyte Esterase (Negative) U Hyaline Cast (Auto) (0-2) /LPF Urine Microscopic RBC (0-5) /HPF Urine Microscopic WBC (0-5) /HPF Ur Epithelial Cells (None Seen) /HPF Urine Bacteria (None Seen) /HPF Urine Culture Reflexed (NO) - Progress Progress: improved Progress Note: Abdominal Pain: Severe, episodic pain in the right upper quadrant, worse with food. No history of gallbladder or pancreatic issues. Noted change in stool color and odor. No vomiting, fever, or chills. Physical exam unremarkable. Differential includes pancreatitis, biliary duct obstruction, or other gastrointestinal pathology. -Order labs to check liver and pancreatic enzymes. -Order CTA chest, abd, pelvis -Administer IV fluids and offer pain medication as needed. CTA of the chest showed no aortic dissection, but did show multiple lung nodules. CT scan of the abdomen and pelvis showed an adrenal lesion and findings suggestive of a small bowel obstruction without obstructing lesion. Laboratory evaluation was largely unremarkable, white count 10.7. I called Dr. Avery at 12:38 AM to discuss the findings and recommended n.p.o. with placement of NG tube and he will evaluate in the morning. I then spoke with Dr. Marcos at 12:42 AM who agreed to accept the patient for admission. NG tube was successfully placed and immediately was able to remove 900 mL of bilious fluid. Chest x-ray was ordered to confirm placement, this was interpreted by me which showed good placement into the fundus. Discussed with Dr.: Tj, Other (Priti) Will see patient in: hospital (observation) Counseled pt/family regarding: lab results, diagnosis, need for follow-up, rad results Medical Desision Making - Diagnostic Testing Diagnostic test were ordered, analyzed, and reviewed by me: Yes Radiological Interpretation: Interpreted by me, Reviewed by me, Teleradiologist Report - Risk of complications The pt has a mod risk of morbidity or mortality based on: Need for prescription drug management The pt has a high risk of morbidity or mortality based on: Decision regarding hospitilization or escalation of hosp level of care - Departure Departure Disposition: Observation Clinical Impression: Small bowel obstruction, Abdominal pain, Multiple lung nodules on CT, Lesion of adrenal gland, Renal cyst, Enlarged prostate Condition: Good Critical Care Time: No
[2023-11-30 21:48] LABS: Absolute Neutrophil Ct (ANC) 9.11 x10^3/uL (1.78-5.38); BASOPHIL % 0.2 % (0.2-1.2); Basophil (Absolute #) 0.02 x10^3/uL (0.01-0.08); Eosinophil (Absolute #) 0.21 x10^3/uL (0.04-0.54); Hematocrit 48.9 % (40.1-51.0); Hemoglobin 16.3 g/dL (13.7-17.5); IMMATURE GRAN # 0.04 x10^3u/L (0.001-0.031); IMMATURE GRAN % 0.4 % (0.001-0.429); Lymphocyte (Absolute #) 0.72 x10^3/uL (1.32-3.57); Lymphocytes % 6.7 % (21.8-53.1); Mean Cell Volume 91.6 fL (79.0-92.2); Mean Corpuscular Hemoglobin 30.5 pg (25.7-32.2); Mean Corpuscular Hgb Concent. 33.3 g/dL (32.3-36.5); Mean Platelet Volume 9.7 fL (9.4-12.4); Monocyte (Absolute #) 0.63 x10^3/uL (0.30-0.82); Monocytes % 5.9 % (5.3-12.2); Neutrophil % 84.8 % (34.0-67.9); Platelet Count 154 x10^3/uL (163-337); Red Blood Count 5.34 x10^6/uL (4.63-6.08); Red Cell Distribution Width 12.4 % (11.6-14.4); White Blood Count 10.7 x10^3/uL (4.23-9.07)
[2023-11-30] MEDS ORDERED: Sodium Chloride 0.9% 1000 ML 1,000 ML ONE (21:48)
[2023-11-30] MEDS: Sodium Chloride 0.9% 1000 ML 1,000 ML IV STA (21:49)
[2023-11-30 22:17] LABS: ALBUMIN 4.9 g/dL (3.5-5.0); ANION GAP 12.9 MEQ/L (5-15); Creatinine 1 1.03 mg/dL (0.66-1.25); EST GLOMERULAR FILTRATION RATE 87.4 ML/MIN; Potassium 3.9 mmol/L (3.5-5.1); Total Protein 7.5 g/dL (6.3-8.2)
--- NOTE | 2023-11-30 23:51 | XRAY ---
CLINICAL HISTORY: epigastric pain COMPARISON: None. TECHNIQUE: Contiguous axial CT anigographic images of the chest were acquired with the administration of intravenous contrast. Coronal, sagittal and 3D reconstructions were also obtained. One of these 3D techniques was utilized: Maximum Intensity Pixel (MIP), 3D Reconstructed Images, Volume Rendered Images, Surface Shaded Rendering. One of the following dose reduction techniques were utilized for this exam: Automated exposure control, adjustment of the mA and/or kV according to patient size, use of iterative reconstruction. FINDINGS: No evidence of obvious filling defects within the main pulmonary trunk, bilateral main pulmonary arteries, segmental arteries and subsegmental arteries to suggest acute or chronic pulmonary embolism. Patent examined thoracic aorta. No intraluminal hypodense thrombi or dissecting intimal flaps. No gross cardiac abnormalities. No pleural or pericardial sac collections. Few right upper and middle lobes josefina-fissural and subpleural nodules 2-4 mm. Bilateral upper lobes apical segments reticulations with right lower lobe calcified nodule, likely post granulomatous infection sequel. Associated upper lobar apical paraseptal emphysema. Bilateral lower lobes subsegmental atelectatic changes. Bilateral upper lobes posterior subpleural fine atelectatic plates and reticular densities. No pulmonary masses or consolidations. Scanned osseous structures show mild spondylosis. Scanned upper abdominal cuts show fatty hepatomegaly and left adrenal small adenoma. IMPRESSION: 1. No evidence of pulmonary arterial acute or chronic thromboembolism. 2. Bilateral upper lobes apical reticulations with calcified pulmonary nodule. 3. Bilateral pulmonary atelectatic changes. 4. Few right upper and middle lobes josefina-fissural and subpleural nodules 2-4 mm. No follow up in low risk patients according to Fleischner Society pulmonary nodule recommendations. Electronically Signed by: Iam Montanez MD. (11/30/2023 23:47:14 EDT)
--- NOTE | 2023-12-01 00:21 | XRAY ---
CLINICAL HISTORY: abd pain COMPARISON: CT abdomen dated 09-12-2023 TECHNIQUE: A CT scan of the abdomen and pelvis was performed with IV contrast 100 cc isovue 370mg/ml. Coronal and sagittal reconstructive images were also obtained. One of the following dose reduction techniques was utilized for this exam. Automated exposure control, adjustment of the mA and/or kV according to patient size, and use of iterative reconstruction. FINDINGS: Scan through the lower chest reveals few atelectatic bands in basal segments of bilateral lower lung stevens. Abdomen: The liver is of average size and measures 16 cm. Fatty infiltration is appreciated. The gall bladder is not visualized. The portal vein, intrahepatic biliary radicals and the bile ducts are normal. The spleen, pancreas, and right adrenal gland are unremarkable. The left adrenal gland shows thickening of its lateral limb with a small hypodense lesion in it, measuring approximately 1.9 x 1.4 cm in size. Small amount of fat is appreciated in it. Perilesional mesenteric fat stranding is appreciated. The kidneys are unremarkable. They are normal in size and shape. No calculi or hydronephrosis. Few small and simple left renal cortical cysts are seen Mildly dilated small bowel loops reaching 3.2 cm in diameter and showing mild mural enhancement with change of caliber at the level of collapsed small bowel loops. No obvious obstructing masses. The ascending colon, the transverse colon, the descending colon are unremarkable. There is no evidence of significant enlargement of the mesenteric or retroperitoneal lymph nodes. Pelvis: The urinary bladder is unremarkable. The rectosigmoid colon is unremarkable. The prostate is enlarged. Measuring 4 x 5.7 x 5 cm. with an estimated volume ranging around 59 mL. The pelvic vasculature is unremarkable. No evidence of pelvic lymphadenopathy. No definite bony abnormalities could be depicted. IMPRESSION: 1. Mildly dilated small bowel loops reaching 3.2 cm in diameter and showing mild mural enhancement with change of caliber at the level of collapsed small bowel loops. No obvious obstructing masses. new finding. advise clinical correlation. 2. Fatty liver. The small hepatic cyst mentioned in the previous CT is not appreciated in current study.The left adrenal gland shows thickening of its lateral limb with a small hypodense lesion in it, and perilesional mesenteric fat stranding, possibly myelolipoma. 3. Left renal small simple cortical cysts stable. 4. Enlarged prostate. stable. [facility] was called at [phone] at 11:13 PM [employer]LLOW, 11/30/[address] Pino was informed about important medical findings, Electronically Signed by: Iam Montanez MD. (12/01/2023 00:17:00 EDT)
[2023-12-01 00:54] LABS: ADD URINE CULTURE? NO (NO); Appearance Clear (Clear); Bacteria None Seen /HPF (None Seen); Bilirubin Negative (Negative); Blood Negative (Negative); Epithelial Cells None Seen /HPF (None Seen); Glucose, Urine Negative (Negative); Hyaline Casts NONE SEEN /LPF (0-2); Ketones Negative (Negative); Leukocyte Esterase Negative (Negative); Nitrite Negative (Negative); Ph 5.5 (4.6-8.0); Protein,Urine Dip Negative (Negative); RBC 0-2 /HPF (0-5); Specific Gravity >=1.030 (1.005-1.030); WBC 0-2 /HPF (0-5)
[2023-12-01] MEDS ORDERED: CETACAINE SPRAY ONE (00:56)
[2023-12-01] MEDS ORDERED: Zofran 4 MG/2 ML VIAL ONE ×2 (00:56→00:58)
[2023-12-01] MEDS: CETACAINE SPRAY TP ONE (00:57)
[2023-12-01] MEDS: Zofran 4 MG/2 ML VIAL IV ONE (00:57)
[2023-12-01] MEDS ORDERED: ROCEPHIN 1 GM / 100 ML NaCl 1 GM/100 ML IVPB IV ONE (01:33)
[2023-12-01] MEDS ORDERED: FLAGYL 500 MG IVPB 500 MG/100 ML BAG IV ONE (01:33)
[2023-12-01] MEDS: ROCEPHIN 1 GM / 100 ML NaCl 1 GM/100 ML IVPB IV ONE (01:35)
[2023-12-01] MEDS: FLAGYL 500 MG IVPB 500 MG/100 ML BAG IV STA (01:36)
--- NOTE | 2023-12-01 02:12 | PCM.HP ---
History of Present Illness - Chief Complaint Chief Complaint: abd pain Date: 11/30/23 History of Present Illness: Mr. COSTA is a 53 year old male with a past medical history significant for hypertension, hyperlipidemia and GERD who presented to the ER with complaints of abdominal pain that began while at a [employer] baseball game. He had eaten 3 chicken fingers, english fries and water prior to the game but nothing there. No fever or chills. No chest pain or shortness of breath. He denies nausea, vomiting but some mild diarrhea. No recent changes in diet. No dysuria, hematuria or urinary frequency. CT chest done negative for PE. CT abd/pelvis demonstrated small bowel obstruction and NGT placed. Case was discussed with gen surgery, who has recommended admission and possible surgery. He is resting in bed, sleepy but arousable. He appears hemodynamically stable and in no distress. He does note chronic lower back pain and believes he has been taking hydrocodone more frequently, but no more than one pill per day. - Review of Systems Constitutional: No Fever, No Chills, No Fatigue Eyes: No Vision Changes Ears, Nose, & Throat: No Nose Discharge, No Sinus Drainage Respiratory: No Cough, No Orthopnea, No Short Of Breath Cardiac: No Chest Pain, No Palpitations Abdominal/Gastrointestinal: Abdominal Pain, No Nausea, No Vomiting, No Diarrhea Genitourinary Symptoms: No Dysuria, No Frequency, No Hematuria Musculoskeletal: No Joint Pain Skin: No Rash Neurological: No Focal Weakness Psychological: No Suicidal Ideations Endocrine: No Polyuria, No Polydipsia Medications & Allergies Home Medications: Home Medication List Losartan Potassium 100 mg PO DAILY 09/11/20 [History Confirmed 11/30/23] Omeprazole 20 mg PO DAILY 09/11/20 [History Confirmed 11/30/23] Oxycodone HCl/Acetaminophen [Oxycodone-Acetaminophen 5-325] 1 tab PO DAILY PRN 07/25/21 [History Confirmed 12/01/23] Triamterene/Hydrochlorothiazid [Triamterene-Hctz 37.5-25 mg Tb] 1 dose PO DAILY 07/25/21 [History Confirmed 11/30/23] Paroxetine HCl 20 mg [Paxil 20 MG] 20 mg PO DAILY 11/30/23 [History Confirmed 11/30/23] Simvastatin [Zocor] 20 mg PO DAILY 11/30/23 [History Confirmed 11/30/23] Allergies/Adverse Reactions: Allergies Allergy/AdvReac Type Severity Reaction Status Date / Time hydromorphone [From Dilaudid] AdvReac Intermediate Nausea and Verified 11/30/23 21:02 Vomiting - Past Medical History Past Medical History: Yes Neurological History: No Pertinent History ENT History: No Pertinent History Cardiac History: High Cholesterol, Hypertension Respiratory History: Bronchitis, Pneumonia, Other Endocrine Medical History: Other Musculoskelatal History: Other GI Medical History: No Pertinent History History: No Pertinent History Pyscho-Social History: Anxiety Male Reproductive Disorders: No Pertinent History Comment: cholecystectomy, R knee meniscal tear, 30-40% arterial blockage, pre- diabetic, sinusitis, R ankle fx (pediatric), R collarbone ([place], teenage) fx, R Great toe fx (high school), multiple L hand surgeries for cyst removals (2018). Thoracic Spondylosis ([facility] [place] and has received injections which he reports have allowed him to resume his life) he reports that his last was performed in 06/12 and he receives an injection approximately every 7 months. - Past Surgical History Past Surgical History: Yes Neuro Surgical History: No Pertinent History Cardiac History: No Pertinent History Respiratory Surgery: No Pertinent History GI Surgical History: Cholecystectomy Genitourinary Surgical Hx: No Pertinent History Musculskeletal Surgical Hx: Orthopedic Surgery Male Surgical History: No Pertinent History Other Surgical History: cyst removal from left hand, skin graft rt ankle, R meniscus surgery. Lasik surgery - Social History Smoking Status: Former smoker How long have you smoked: appx 18 yr Exposure to second hand smoke: No Alcohol: None Drug Use: none - Social Determinants of Health Will the patient participate in the screening: Yes Do you worry about a steady place to live?: No Do you have any problems with any of the following?: No known problems In the past 12 months,have you had to go without utilities?: No Have you or anyone in your house had to go without enough: No Transportation Issues: No Has anyone in your support network made you feel unsafe?: No - Physical Exam Vital Signs: Vital Signs - 24 hr Temp Pulse Resp BP BP Pulse Ox 12/01/23 01:32 98 H 148/97 93 L 12/01/23 00:55 96 12/01/23 00:30 87 135/98 95 12/01/23 00:00 85 144/101 94 L 11/30/23 23:30 85 123/69 94 L 11/30/23 23:00 88 137/94 95 11/30/23 22:00 86 137/94 94 L 11/30/23 21:30 85 138/91 95 11/30/23 21:07 97.3 F 85 16 139/96 96 11/30/23 21:03 88 139/96 95 General Appearance: no apparent distress Neurologic Exam: cooperative Ears, Nose, Throat Exam: dry mucous membranes Neck Exam: supple Respiratory Exam: No respiratory distress Cardiovascular Exam: regular rate/rhythm Gastrointestinal/Abdomen Exam: tenderness, distention Extremity Exam: No pedal edema, No swelling Skin Exam: warm, No rash Results - Labs Lab/Micro Results: Lab Results-Last 24 Hours 11/30/23 11/30/23 11/30/23 Range/Units 21:31 21:45 21:45 WBC 10.7 H (4.23-9.07) x10^3/uL RBC 5.34 (4.63-6.08) x10^6/uL Hgb 16.3 (13.7-17.5) g/dL Hct 48.9 (40.1-51.0) % MCV 91.6 (79.0-92.2) fL MCH 30.5 (25.7-32.2) pg MCHC 33.3 (32.3-36.5) g/dL RDW 12.4 (11.6-14.4) % Plt Count 154 L (163-337) x10^3/uL MPV 9.7 (9.4-12.4) fL Gran % 84.8 H (34.0-67.9) % Immature Gran % (Auto) 0.4 (0.001-0.429) % Nucleat RBC Rel Count 0.0 (0.00-0.2) % Eos # (Auto) 0.21 (0.04-0.54) x10^3/uL Immature Gran # (Auto) 0.04 H (0.001-0.031) x10^3u/L Absolute Lymphs (auto) 0.72 L (1.32-3.57) x10^3/uL Absolute Monos (auto) 0.63 (0.30-0.82) x10^3/uL Absolute Nucleated RBC 0.00 (0.00-0.012) x10^3u/L Lymphocytes % 6.7 L (21.8-53.1) % Monocytes % 5.9 (5.3-12.2) % Eosinophils % 2.0 (0.8-7.0) % Basophils % 0.2 (0.2-1.2) % Absolute Granulocytes 9.11 H (1.78-5.38) x10^3/uL Basophils # 0.02 (0.01-0.08) x10^3/uL ESR (0-15) mm/hr Sodium 143 (135-145) mmol/L Potassium 3.9 (3.5-5.1) mmol/L Chloride 107 (98-107) mmol/L Carbon Dioxide 27 (22-30) mmol/L Anion Gap 12.9 (5-15) MEQ/L BUN 26 H (9-20) mg/dL Creatinine 1.03 (0.66-1.25) mg/dL Estimated GFR 87.4 ML/MIN Glucose 129 H (74-106) mg/dL Lactic Acid 1.3 (0.4-2.0) Calcium 10.0 (8.4-10.2) mg/dL Total Bilirubin 1.00 (0.2-1.3) mg/dL AST 41 (17-59) U/L ALT 60 H (0-50) U/L Alkaline Phosphatase 55 (38-126) U/L Troponin I (0.000-0.033) ng/mL Serum Total Protein 7.5 (6.3-8.2) g/dL Albumin 4.9 (3.5-5.0) g/dL Triglycerides 107 (30-150) mg/dL Cholesterol 197 (50-200) mg/dL LDL Cholesterol 104 H (30-100) mg/dL HDL Cholesterol 69 H (40-60) mg/dL Heart Disease Risk Ratio 3.0 Amylase 82 (30-110) U/L Lipase 48 (23-300) U/L TSH 3rd Generation (0.470-4.680) mIU/L Urine Color (Yellow) Urine Appearance (Clear) Urine pH (4.6-8.0) Ur Specific Hector (1.005-1.030) Urine Protein (Negative) Urine Glucose (UA) (Negative) mg/dL Urine Ketones (Negative) Urine Blood (Negative) Urine Nitrite (Negative) Urine Bilirubin (Negative) Urine Urobilinogen (0.2) mg/dL Ur Leukocyte Esterase (Negative) U Hyaline Cast (Auto) (0-2) /LPF Urine Microscopic RBC (0-5) /HPF Urine Microscopic WBC (0-5) /HPF Ur Epithelial Cells (None Seen) /HPF Urine Bacteria (None Seen) /HPF Urine Culture Reflexed (NO) 11/30/23 11/30/23 11/30/23 Range/Units 21:45 21:45 21:45 WBC (4.23-9.07) x10^3/uL RBC (4.63-6.08) x10^6/uL Hgb (13.7-17.5) g/dL Hct (40.1-51.0) % MCV (79.0-92.2) fL MCH (25.7-32.2) pg MCHC (32.3-36.5) g/dL RDW (11.6-14.4) % Plt Count (163-337) x10^3/uL MPV (9.4-12.4) fL Gran % (34.0-67.9) % Immature Gran % (Auto) (0.001-0.429) % Nucleat RBC Rel Count (0.00-0.2) % Eos # (Auto) (0.04-0.54) x10^3/uL Immature Gran # (Auto) (0.001-0.031) x10^3u/L Absolute Lymphs (auto) (1.32-3.57) x10^3/uL Absolute Monos (auto) (0.30-0.82) x10^3/uL Absolute Nucleated RBC (0.00-0.012) x10^3u/L Lymphocytes % (21.8-53.1) % Monocytes % (5.3-12.2) % Eosinophils % (0.8-7.0) % Basophils % (0.2-1.2) % Absolute Granulocytes (1.78-5.38) x10^3/uL Basophils # (0.01-0.08) x10^3/uL ESR 2 (0-15) mm/hr Sodium (135-145) mmol/L Potassium (3.5-5.1) mmol/L Chloride (98-107) mmol/L Carbon Dioxide (22-30) mmol/L Anion Gap (5-15) MEQ/L BUN (9-20) mg/dL Creatinine (0.66-1.25) mg/dL Estimated GFR ML/MIN Glucose (74-106) mg/dL Lactic Acid (0.4-2.0) Calcium (8.4-10.2) mg/dL Total Bilirubin (0.2-1.3) mg/dL AST (17-59) U/L ALT (0-50) U/L Alkaline Phosphatase (38-126) U/L Troponin I < 0.012 (0.000-0.033) ng/mL Serum Total Protein (6.3-8.2) g/dL Albumin (3.5-5.0) g/dL Triglycerides (30-150) mg/dL Cholesterol (50-200) mg/dL LDL Cholesterol (30-100) mg/dL HDL Cholesterol (40-60) mg/dL Heart Disease Risk Ratio Amylase (30-110) U/L Lipase (23-300) U/L TSH 3rd Generation 0.994 (0.470-4.680) mIU/L Urine Color (Yellow) Urine Appearance (Clear) Urine pH (4.6-8.0) Ur Specific Hector (1.005-1.030) Urine Protein (Negative) Urine Glucose (UA) (Negative) mg/dL Urine Ketones (Negative) Urine Blood (Negative) Urine Nitrite (Negative) Urine Bilirubin (Negative) Urine Urobilinogen (0.2) mg/dL Ur Leukocyte Esterase (Negative) U Hyaline Cast (Auto) (0-2) /LPF Urine Microscopic RBC (0-5) /HPF Urine Microscopic WBC (0-5) /HPF Ur Epithelial Cells (None Seen) /HPF Urine Bacteria (None Seen) /HPF Urine Culture Reflexed (NO) 12/01/23 Range/Units 00:45 WBC (4.23-9.07) x10^3/uL RBC (4.63-6.08) x10^6/uL Hgb (13.7-17.5) g/dL Hct (40.1-51.0) % MCV (79.0-92.2) fL MCH (25.7-32.2) pg MCHC (32.3-36.5) g/dL RDW (11.6-14.4) % Plt Count (163-337) x10^3/uL MPV (9.4-12.4) fL Gran % (34.0-67.9) % Immature Gran % (Auto) (0.001-0.429) % Nucleat RBC Rel Count (0.00-0.2) % Eos # (Auto) (0.04-0.54) x10^3/uL Immature Gran # (Auto) (0.001-0.031) x10^3u/L Absolute Lymphs (auto) (1.32-3.57) x10^3/uL Absolute Monos (auto) (0.30-0.82) x10^3/uL Absolute Nucleated RBC (0.00-0.012) x10^3u/L Lymphocytes % (21.8-53.1) % Monocytes % (5.3-12.2) % Eosinophils % (0.8-7.0) % Basophils % (0.2-1.2) % Absolute Granulocytes (1.78-5.38) x10^3/uL Basophils # (0.01-0.08) x10^3/uL ESR (0-15) mm/hr Sodium (135-145) mmol/L Potassium (3.5-5.1) mmol/L Chloride (98-107) mmol/L Carbon Dioxide (22-30) mmol/L Anion Gap (5-15) MEQ/L BUN (9-20) mg/dL Creatinine (0.66-1.25) mg/dL Estimated GFR ML/MIN Glucose (74-106) mg/dL Lactic Acid (0.4-2.0) Calcium (8.4-10.2) mg/dL Total Bilirubin (0.2-1.3) mg/dL AST (17-59) U/L ALT (0-50) U/L Alkaline Phosphatase (38-126) U/L Troponin I (0.000-0.033) ng/mL Serum Total Protein (6.3-8.2) g/dL Albumin (3.5-5.0) g/dL Triglycerides (30-150) mg/dL Cholesterol (50-200) mg/dL LDL Cholesterol (30-100) mg/dL HDL Cholesterol (40-60) mg/dL Heart Disease Risk Ratio Amylase (30-110) U/L Lipase (23-300) U/L TSH 3rd Generation (0.470-4.680) mIU/L Urine Color Yellow (Yellow) Urine Appearance Clear (Clear) Urine pH 5.5 (4.6-8.0) Ur Specific Hector >=1.030 A (1.005-1.030) Urine Protein Negative (Negative) Urine Glucose (UA) Negative (Negative) mg/dL Urine Ketones Negative (Negative) Urine Blood Negative (Negative) Urine Nitrite Negative (Negative) Urine Bilirubin Negative (Negative) Urine Urobilinogen 1.0 A (0.2) mg/dL Ur Leukocyte Esterase Negative (Negative) U Hyaline Cast (Auto) NONE SEEN (0-2) /LPF Urine Microscopic RBC 0-2 (0-5) /HPF Urine Microscopic WBC 0-2 (0-5) /HPF Ur Epithelial Cells None Seen (None Seen) /HPF Urine Bacteria None Seen (None Seen) /HPF Urine Culture Reflexed NO (NO) - Radiology Impressions Radiology Exams & Impressions: Radiology Procedures Category Date Time Status ABDOMEN AND PELVIS W CONTRAST [CT] Stat Exams 11/30/23 21:32 Completed CHEST 1 VIEW (PORTABLE) Stat Exams 12/01/23 01:20 Taken CTA CHEST W AND/OR WO [CT] Stat Exams 11/30/23 21:33 Completed Assessment/Plan (1) Small bowel obstruction Current Visit: Yes Status: Acute Assessment & Plan: Abd pain secondary to SBO on CT scan - ? related to increasing hydrocodone 1. Admit to hospital 2. NPO, start IVFs 3. Pain control 4. Gen surgery consultation Code(s): K56.609 - UNSP INTESTNL OBST, UNSP TO PARTIAL VERSUS COMPLETE OBST (2) Hypertension Current Visit: No Status: Acute Assessment & Plan: Under reasonable control, likely exacerbated by pain 1. Continue bp meds but hold diuretics 2. IVFs for bp support 3. Monitor bp readings Code(s): I10 - ESSENTIAL (PRIMARY) HYPERTENSION (3) Dehydration Current Visit: Yes Status: Acute Assessment & Plan: Likely mild prerenal azotemia and diuretics 1. Gentle IVFs while NPO 2. Hold diuretics 3. Follow I/Os 4. Watch electrolytes kidney function closely Code(s): E86.0 - DEHYDRATION Telemedicine Encounter - Telemedicine Encounter Telemedicine Encounter: "The entirety of this encounter was performed via Telemedicine" This visit was performed using real-time audio and video connection between my location and thepatients locationwith the assistance of a surrogateat the patients location. Written or verbal consent was obtained from the patient/guardian to perform this visit [facility] technology. Any patient questions regarding the telemedicine interaction were answered.
[2023-12-01] MEDS ORDERED: Zofran 4 MG/2 ML VIAL IV PRN (04:06)
[2023-12-01] MEDS ORDERED: FEVERALL 650 MG PR PRN (04:06)
[2023-12-01] MEDS: Dextrose 5% -0.45 NaCl 1000 ML 1,000 ML IV SCH (04:50)
[2023-12-01 05:50] LABS: Hematocrit 47.2 % (40.1-51.0); Hemoglobin 15.5 g/dL (13.7-17.5); Mean Cell Volume 92.7 fL (79.0-92.2); Mean Corpuscular Hemoglobin 30.5 pg (25.7-32.2); Mean Corpuscular Hgb Concent. 32.8 g/dL (32.3-36.5); Mean Platelet Volume 9.9 fL (9.4-12.4); Platelet Count 141 x10^3/uL (163-337); Red Blood Count 5.09 x10^6/uL (4.63-6.08); Red Cell Distribution Width 12.6 % (11.6-14.4); White Blood Count 8.1 x10^3/uL (4.23-9.07)
[2023-12-01 06:10] LABS: INR 0.94 (0.8-3.0); PROTIME 10.3 SECONDS (9.4-12.5)
[2023-12-01 06:17] LABS: ALBUMIN 4.5 g/dL (3.5-5.0); ANION GAP 12.3 MEQ/L (5-15); BILIRUBIN,TOTAL 0.8 mg/dL (0.2-1.3); Creatinine 1 0.8 mg/dL (0.66-1.25); EST GLOMERULAR FILTRATION RATE 106.5 ML/MIN; PREALBUMIN 33.33 mg/dL (17.6-36.0); Potassium 3.6 mmol/L (3.5-5.1); Total Protein 6.9 g/dL (6.3-8.2)
--- NOTE | 2023-12-01 08:15 | XRAY ---
Indication: NG tube placement. Comparison: July 25, 2021 Portable chest demonstrates new NG tube traversing chest with tip in stomach. Lungs remain inflated and clear. Heart not enlarged. Bony thorax intact again with osteopenia and degenerative changes. No new/acute cardiopulmonary abnormalities.
[2023-12-01] MEDS: CHLORASEPTIC SPRAY 180 ML PO PRN (08:55)
[2023-12-01] MEDS ORDERED: ENOXAPARIN SODIUM SQ SCH (10:00)
[2023-12-01] MEDS: ZOCOR 20MG PO SCH (12:29)
[2023-12-01] MEDS: Protonix 40MG Tablet PO SCH (12:29)
[2023-12-01] MEDS: Cozaar 50 MG PO SCH (12:29)
[2023-12-01] MEDS: Paxil 20 MG PO SCH (12:29)
[2023-12-01] MEDS: ROCEPHIN 1 GM / 100 ML NaCl 1 GM/100 ML IVPB IV SCH (21:36)
[2023-12-02 04:46] LABS: Hematocrit 44.4 % (40.1-51.0); Hemoglobin 14.4 g/dL (13.7-17.5); Mean Cell Volume 93.1 fL (79.0-92.2); Mean Corpuscular Hemoglobin 30.2 pg (25.7-32.2); Mean Corpuscular Hgb Concent. 32.4 g/dL (32.3-36.5); Mean Platelet Volume 9.7 fL (9.4-12.4); Platelet Count 127 x10^3/uL (163-337); Red Blood Count 4.77 x10^6/uL (4.63-6.08); Red Cell Distribution Width 12.2 % (11.6-14.4); White Blood Count 4.6 x10^3/uL (4.23-9.07)
[2023-12-02 05:10] LABS: INR 0.97 (0.8-3.0); PROTIME 10.6 SECONDS (9.4-12.5)
[2023-12-02 05:12] LABS: ALBUMIN 3.8 g/dL (3.5-5.0); BILIRUBIN,TOTAL 0.7 mg/dL (0.2-1.3); Calcium 8.5 mg/dL (8.4-10.2); Creatinine 1 0.82 mg/dL (0.66-1.25); EST GLOMERULAR FILTRATION RATE 105.7 ML/MIN; Total Protein 6.1 g/dL (6.3-8.2)
[2023-12-02 05:16] LABS: Potassium 3.2 mmol/L (3.5-5.1)
[2023-12-02 05:17] LABS: ANION GAP 9.2 MEQ/L (5-15)
[2023-12-02] MEDS: POTASSIUM CHLORIDE 20 mEq IN WATER 100ML 20 MEQ/100 ML BAG IV SCH (05:50)
--- NOTE | 2023-12-02 08:34 | XRAY ---
Indication: Small bowel obstruction. Comparison: CT abdomen/pelvis November 30, 2023. KUB nonacute and nonobstructed with NG tube tip in stomach. Previous cholecystectomy. Solid organs unremarkable. Osseous structures intact with mild degenerative changes.
--- NOTE | 2023-12-02 08:41 | CONS ---
HISTORY: The patient presented last night with small bowel obstruction. Nasogastric tube was placed. He was decompressed. IV fluids were started. His vital signs are stable. He is not toxic. His abdomen is moderately distended. He is not passing any gas. There are no palpable masses. He has had a previous lap evin back in 2018 or 2019. Otherwise, he has not had any intra-abdominal surgeries. Had katheryn discussion. We will try 24 to 48 hours of decompression. If he does not open up, he will be a surgical candidate.
--- NOTE | 2023-12-02 10:52 | PCM.NOTE ---
Date and Time: 12/02/23 1045 Subjective Assessment: 12/02/23 Mr. COSTA is a 53 year old male with a past medical history significant for hypertension, hyperlipidemia and GERD. He presented to the ER on 11/30/23 with complaints of abdominal pain that began while at a [employer] baseball game. He had eaten 3 chicken fingers, [place] fries, and water prior to the game but nothing there. No fever or chills. No chest pain or shortness of breath. He denies nausea, vomiting but some mild diarrhea. No recent changes in diet. No dysuria, hematuria or urinary frequency. CT chest done negative for PE. CT abd/pelvis demonstrated small bowel obstruction and NGT placed. Case was discussed with gen surgery, who has recommended admission and possible surgery. Since admission he has been passing gas. He states he feels fine. KUB this am shows no bowel obstruction. NG d/c'd and clear liquid diet started. IV fluid stopped. Will advance if tolerated. Antibiotic stopped as WBC WNL, CT negative for acute infection, and no sxs. K+ 3.2 and replaced this AM. Pt denies CP, SOB, abd. pain, N/V/D. - Review of Systems Constitutional: No Fever, No Chills Eyes: No Symptoms Ears, Nose, & Throat: No Symptoms Respiratory: No Cough, No Short Of Breath Cardiac: No Chest Pain, No Edema, No Syncope Abdominal/Gastrointestinal: Abdominal Pain (slight discomfort with palpation of RUQ region), No Nausea, No Vomiting, No Diarrhea Genitourinary Symptoms: No Dysuria Musculoskeletal: No Back Pain, No Neck Pain Skin: No Rash Neurological: No Dizziness, No Focal Weakness, No Sensory Changes Psychological: No Symptoms Endocrine: No Symptoms Hematologic/Lymphatic: No Symptoms Immunological/Allergic: No Symptoms Objective Exam General Appearance: no apparent distress, alert Neurologic Exam: alert, oriented x 3, cooperative, normal mood/affect, nml cerebellar function, sensation nml, No motor deficits Skin Exam: normal color, warm, dry Eye Exam: PERRL, EOMI, eyes nml inspection Ears, Nose, Throat Exam: normal ENT inspection, pharynx normal, moist mucous membranes Neck Exam: normal inspection, non-tender, supple, full range of motion Respiratory Exam: normal breath sounds, lungs clear, No respiratory distress Cardiovascular Exam: regular rate/rhythm, normal heart sounds Gastrointestinal/Abdomen Exam: soft, tenderness (RUQ with palpation), No mass Extremity Exam: normal inspection, normal range of motion Back Exam: normal inspection, normal range of motion, No CVA tenderness, No vertebral tenderness Male Genitalia Exam: deferred Rectal Exam: deferred Objective Data Vital Signs: Vital Signs - 24 hr Temp Pulse Resp BP Pulse Ox 12/02/23 07:16 98.7 F 72 21 123/74 90 L 12/02/23 04:00 97.8 F 80 16 126/69 91 L 12/01/23 23:39 98.7 F 79 16 136/66 91 L 12/01/23 20:00 98.9 F 80 19 123/73 91 L 12/01/23 16:00 99 F 86 18 132/76 92 L 12/01/23 12:00 99.2 F 91 H 18 136/82 91 L Pain Assessment - Last Documented Pain Intensity 2 Intake and Output: Intake & Output 11/29/23 11/30/23 12/01/23 12/02/23 11:59 11:59 11:59 11:59 Intake Total 2238 Output Total 152 675 Balance -1525 1563 Weight 130 kg Lab Results: Lab Results-Last 24 Hours 12/01/23 12/01/23 12/01/23 Range/Units 05:25 12:07 16:51 WBC (4.23-9.07) x10^3/uL RBC (4.63-6.08) x10^6/uL Hgb (13.7-17.5) g/dL Hct (40.1-51.0) % MCV (79.0-92.2) fL MCH (25.7-32.2) pg MCHC (32.3-36.5) g/dL RDW (11.6-14.4) % Plt Count (163-337) x10^3/uL MPV (9.4-12.4) fL PT (9.4-12.5) SECONDS INR (0.8-3.0) Sodium (135-145) mmol/L Potassium (3.5-5.1) mmol/L Chloride (98-107) mmol/L Carbon Dioxide (22-30) mmol/L Anion Gap (5-15) MEQ/L BUN (9-20) mg/dL Creatinine (0.66-1.25) mg/dL Estimated GFR ML/MIN Glucose (74-106) mg/dL POC Glucometer 124 H 132 H (74 to 106) mg/dL Hemoglobin A1c 6.03 H (4.5-6.0) % Calcium (8.4-10.2) mg/dL Total Bilirubin (0.2-1.3) mg/dL AST (17-59) U/L ALT (0-50) U/L Alkaline Phosphatase (38-126) U/L Serum Total Protein (6.3-8.2) g/dL Albumin (3.5-5.0) g/dL 12/01/23 12/02/23 12/02/23 Range/Units 23:47 04:22 04:22 WBC 4.6 (4.23-9.07) x10^3/uL RBC 4.77 (4.63-6.08) x10^6/uL Hgb 14.4 (13.7-17.5) g/dL Hct 44.4 (40.1-51.0) % MCV 93.1 H (79.0-92.2) fL MCH 30.2 (25.7-32.2) pg MCHC 32.4 (32.3-36.5) g/dL RDW 12.2 (11.6-14.4) % Plt Count 127 L (163-337) x10^3/uL MPV 9.7 (9.4-12.4) fL PT (9.4-12.5) SECONDS INR (0.8-3.0) Sodium 139 (135-145) mmol/L Potassium 3.2 L (3.5-5.1) mmol/L Chloride 106 (98-107) mmol/L Carbon Dioxide 27 (22-30) mmol/L Anion Gap 9.2 (5-15) MEQ/L BUN 20 (9-20) mg/dL Creatinine 0.82 (0.66-1.25) mg/dL Estimated GFR 105.7 ML/MIN Glucose 127 H (74-106) mg/dL POC Glucometer 109 H (74 to 106) mg/dL Hemoglobin A1c (4.5-6.0) % Calcium 8.5 (8.4-10.2) mg/dL Total Bilirubin 0.70 (0.2-1.3) mg/dL AST 36 (17-59) U/L ALT 51 H (0-50) U/L Alkaline Phosphatase 39 (38-126) U/L Serum Total Protein 6.1 L (6.3-8.2) g/dL Albumin 3.8 (3.5-5.0) g/dL 12/02/23 Range/Units 04:22 WBC (4.23-9.07) x10^3/uL RBC (4.63-6.08) x10^6/uL Hgb (13.7-17.5) g/dL Hct (40.1-51.0) % MCV (79.0-92.2) fL MCH (25.7-32.2) pg MCHC (32.3-36.5) g/dL RDW (11.6-14.4) % Plt Count (163-337) x10^3/uL MPV (9.4-12.4) fL PT 10.6 (9.4-12.5) SECONDS INR 0.97 (0.8-3.0) Sodium (135-145) mmol/L Potassium (3.5-5.1) mmol/L Chloride (98-107) mmol/L Carbon Dioxide (22-30) mmol/L Anion Gap (5-15) MEQ/L BUN (9-20) mg/dL Creatinine (0.66-1.25) mg/dL Estimated GFR ML/MIN Glucose (74-106) mg/dL POC Glucometer (74 to 106) mg/dL Hemoglobin A1c (4.5-6.0) % Calcium (8.4-10.2) mg/dL Total Bilirubin (0.2-1.3) mg/dL AST (17-59) U/L ALT (0-50) U/L Alkaline Phosphatase (38-126) U/L Serum Total Protein (6.3-8.2) g/dL Albumin (3.5-5.0) g/dL Radiology Exams: Radiology Procedures Category Date Time Status ABDOMEN AND PELVIS W CONTRAST [CT] Stat Exams 11/30/23 21:32 Completed CHEST 1 VIEW (PORTABLE) Stat Exams 12/01/23 01:20 Completed CTA CHEST W AND/OR WO [CT] Stat Exams 11/30/23 21:33 Completed KUB Routine Exams 12/02/23 07:39 Completed Assessment/Plan (1) Small bowel obstruction Current Visit: Yes Status: Acute Assessment & Plan: -Abd pain secondary to SBO on CT scan - ? related to increasing hydrocodone - CT abd 11/30/23 IMPRESSION: 1. Mildly dilated small bowel loops reaching 3.2 cm in diameter and showing mild mural enhancement with change of caliber at the level of collapsed small bowel loops. No obvious obstructing masses. new finding. advise clinical correlation. 2. Fatty liver. The small hepatic cyst mentioned in the previous CT is not appreciated in current study.The left adrenal gland shows thickening of its lateral limb with a small hypodense lesion in it, and perilesional mesenteric fat stranding, possibly myelolipoma. 3. Left renal small simple cortical cysts stable. 4. Enlarged prostate. stable. - IVFs stopped today - Pain control - Gen surgery consultation - D/C NG as passing gas - Clear liquid diet started - Stop antibiotics - KUB 12/02/23 KUB nonacute and nonobstructed with NG tube tip in stomach. Previous cholecystectomy. Solid organs unremarkable. Osseous structures intact with mild degenerative changes Code(s): K56.609 - UNSP INTESTNL OBST, UNSP TO PARTIAL VERSUS COMPLETE OBST (2) Dehydration Current Visit: Yes Status: Resolved Assessment & Plan: - resolved Code(s): E86.0 - DEHYDRATION (3) Hypertension Current Visit: No Status: Chronic Assessment & Plan: - Diuretics held on admission - BP well controlled currently - continue home meds Code(s): I10 - ESSENTIAL (PRIMARY) HYPERTENSION (4) Obesity (BMI 30.0-34.9) Current Visit: Yes Status: Chronic Assessment & Plan: - advised diet and exercise control Code(s): E66.9 - OBESITY, UNSPECIFIED
[2023-12-02 11:32] VITALS: O2SAT 92
[2023-12-02 16:47] VITALS: BP 132/71; PULSE 75; RESP 17; TEMP 97.5
--- NOTE | 2023-12-02 18:08 | PCM.DS ---
Discharge Summary Date of Admission: 12/01/23 02:40 Date of Discharge: 12/02/23 Admitting Physician: RAMOS FULLER MD Consults: Consults on Case 12/02/23 07:41 Consult Surgery ROUTINE Primary Care Provider: VIDAL COFFEY Allergies Allergies hydromorphone [From Dilaudid] Adverse Reaction (Intermediate, Verified 11/30/23 21:02) Nausea and Vomiting Hospital Summary - Hospital Course Hospital Course: Mr. COSTA is a 53 year old male with a past medical history significant for hypertension, hyperlipidemia and GERD. He presented to the ER on 11/30/23 with complaints of abdominal pain that began while at [place] [employer] [place]. He had eaten 3 chicken fingers, [place] fries, and water prior to the game but nothing there. No fever or chills. No chest pain or shortness of breath. He denies nausea, vomiting but some mild diarrhea. No recent changes in diet. No dysuria, hematuria or urinary frequency. CT chest done negative for PE. CT abd/pelvis demonstrated small bowel obstruction and NGT placed. Case was discussed with gen surgery, who has recommended admission and possible surgery. Since admission he has been passing gas. He states he feels fine. KUB this am shows no bowel obstruction. NG d/c'd and clear liquid diet started. IV fluid stopped. Will advance if tolerated. Antibiotic stopped as WBC WNL, CT negative for acute infection, and no sxs. K+ 3.2 and replaced this AM. Pt denies CP, SOB, abd. pain, N/V/D. Pt tolerated a clear liquid diet at lunch and for dinner a soft diet. He then had a BM afterwards. He is wanting to go home today. He has had no further discomfort or sxs. - Vitals & Intake/Output Vital Signs: Vital Signs Temperature 97.5 F 12/02/23 16:00 Pulse Rate 75 12/02/23 16:00 Respiratory Rate 17 12/02/23 16:00 Blood Pressure 132/71 12/02/23 16:00 O2 Sat by Pulse Oximetry 92 L 12/02/23 16:00 Intake & Output: Intake & Output 11/30/23 12/01/23 12/02/23 12/03/23 11:59 11:59 11:59 11:59 Intake Total 2238 380 Output Total 1525 675 Balance -1522 6710 380 Weight 130 kg - Lab Result Diagrams: 12/02/23 04:22 12/02/23 13:25 Lab Results-Last 24 Hrs: Lab Results-Last 24 Hours 12/01/23 12/02/23 12/02/23 Range/Units 23:47 04:22 04:22 WBC 4.6 (4.23-9.07) x10^3/uL RBC 4.77 (4.63-6.08) x10^6/uL Hgb 14.4 (13.7-17.5) g/dL Hct 44.4 (40.1-51.0) % MCV 93.1 H (79.0-92.2) fL MCH 30.2 (25.7-32.2) pg MCHC 32.4 (32.3-36.5) g/dL RDW 12.2 (11.6-14.4) % Plt Count 127 L (163-337) x10^3/uL MPV 9.7 (9.4-12.4) fL PT (9.4-12.5) SECONDS INR (0.8-3.0) Sodium 139 (135-145) mmol/L Potassium 3.2 L (3.5-5.1) mmol/L Chloride 106 (98-107) mmol/L Carbon Dioxide 27 (22-30) mmol/L Anion Gap 9.2 (5-15) MEQ/L BUN 20 (9-20) mg/dL Creatinine 0.82 (0.66-1.25) mg/dL Estimated GFR 105.7 ML/MIN Glucose 127 H (74-106) mg/dL POC Glucometer 109 H (74 to 106) mg/dL Calcium 8.5 (8.4-10.2) mg/dL Total Bilirubin 0.70 (0.2-1.3) mg/dL AST 36 (17-59) U/L ALT 51 H (0-50) U/L Alkaline Phosphatase 39 (38-126) U/L Serum Total Protein 6.1 L (6.3-8.2) g/dL Albumin 3.8 (3.5-5.0) g/dL 12/02/23 12/02/23 12/02/23 Range/Units 04:22 11:18 13:25 WBC (4.23-9.07) x10^3/uL RBC (4.63-6.08) x10^6/uL Hgb (13.7-17.5) g/dL Hct (40.1-51.0) % MCV (79.0-92.2) fL MCH (25.7-32.2) pg MCHC (32.3-36.5) g/dL RDW (11.6-14.4) % Plt Count (163-337) x10^3/uL MPV (9.4-12.4) fL PT 10.6 (9.4-12.5) SECONDS INR 0.97 (0.8-3.0) Sodium (135-145) mmol/L Potassium 3.9 D (3.5-5.1) mmol/L Chloride (98-107) mmol/L Carbon Dioxide (22-30) mmol/L Anion Gap (5-15) MEQ/L BUN (9-20) mg/dL Creatinine (0.66-1.25) mg/dL Estimated GFR ML/MIN Glucose (74-106) mg/dL POC Glucometer 122 H (74 to 106) mg/dL Calcium (8.4-10.2) mg/dL Total Bilirubin (0.2-1.3) mg/dL AST (17-59) U/L ALT (0-50) U/L Alkaline Phosphatase (38-126) U/L Serum Total Protein (6.3-8.2) g/dL Albumin (3.5-5.0) g/dL Micro Results-Entire Visit: Accuchecks Date 12/02/23 Date 12/02/23 Date 12/01/23 Time 11:32 Time 05:00 Time 23:47 - Radiology Exams Ordered Rad Exams-Entire Visit: Radiology Procedures Category Date Time Status ABDOMEN AND PELVIS W CONTRAST [CT] Stat Exams 11/30/23 21:32 Completed CHEST 1 VIEW (PORTABLE) Stat Exams 12/01/23 01:20 Completed CTA CHEST W AND/OR WO [CT] Stat Exams 11/30/23 21:33 Completed KUB Routine Exams 12/02/23 07:39 Completed - Procedures and Test Procedures and Tests throughout Hospitalization: Therapy Orders & Screens 12/01/23 03:50 Respiratory Therapy Consult ONCE Comment: Reason For Exam: Diagnosis: sbo Discharge Exam General Appearance: no apparent distress, alert Neurologic Exam: alert, oriented x 3, cooperative, normal mood/affect, nml cerebellar function, sensation nml, No motor deficits Eye Exam: PERRL, EOMI, eyes nml inspection Ears, Nose, Throat Exam: normal ENT inspection, pharynx normal, moist mucous membranes Neck Exam: normal inspection, non-tender, supple, full range of motion Respiratory Exam: normal breath sounds, lungs clear, No respiratory distress Cardiovascular Exam: regular rate/rhythm, normal heart sounds Gastrointestinal/Abdomen Exam: soft, No tenderness, No mass Male Genitalia Exam: deferred Rectal Exam: deferred Back Exam: normal inspection, normal range of motion, No CVA tenderness, No ve rtebral tenderness Extremity Exam: normal inspection, normal range of motion Skin Exam: normal color, warm, dry Final Diagnosis/Problem List - Final Discharge Diagnosis/Problem (1) Small bowel obstruction Current Visit: Yes Status: Acute Code(s): K56.609 - UNSP INTESTNL OBST, UNSP TO PARTIAL VERSUS COMPLETE OBST (2) Dehydration Current Visit: Yes Status: Resolved Code(s): E86.0 - DEHYDRATION (3) Hypertension Current Visit: No Status: Chronic Code(s): I10 - ESSENTIAL (PRIMARY) HYPERTENSION (4) Obesity (BMI 30.0-34.9) Current Visit: Yes Status: Chronic Assessment & Plan: (1) Small bowel obstruction Current Visit: Yes Status: Acute Assessment & Plan: -Abd pain secondary to SBO on CT scan - ? related to increasing hydrocodone - CT abd 11/30/23 IMPRESSION: 1. Mildly dilated small bowel loops reaching 3.2 cm in diameter and showing mild mural enhancement with change of caliber at the level of collapsed small bowel loops. No obvious obstructing masses. new finding. advise clinical correlation. 2. Fatty liver. The small hepatic cyst mentioned in the previous CT is not appreciated in current study.The left adrenal gland shows thickening of its lateral limb with a small hypodense lesion in it, and perilesional mesenteric fat stranding, possibly myelolipoma. 3. Left renal small simple cortical cysts stable. 4. Enlarged prostate. stable. - IVFs stopped today - Pain control - Gen surgery consultation - D/C NG as passing gas - Clear liquid diet started - Stop antibiotics - KUB 12/02/23 KUB nonacute and nonobstructed with NG tube tip in stomach. Previous cholecystectomy. Solid organs unremarkable. Osseous structures intact with mild degenerative changes Code(s): K56.609 - UNSP INTESTNL OBST, UNSP TO PARTIAL VERSUS COMPLETE OBST (2) Dehydration Current Visit: Yes Status: Resolved Assessment & Plan: - resolved Code(s): E86.0 - DEHYDRATION (3) Hypertension Current Visit: No Status: Chronic Assessment & Plan: - Diuretics held on admission - BP well controlled currently - continue home meds Code(s): I10 - ESSENTIAL (PRIMARY) HYPERTENSION (4) Obesity (BMI 30.0-34.9) Current Visit: Yes Status: Chronic Assessment & Plan: - advised diet and exercise control Code(s): E66.9 - OBESITY, UNSPECIFIED Code(s): E66.9 - OBESITY, UNSPECIFIED - Discharge Discharge Date: 12/02/23 Disposition: Home, Self-Care Condition: Good Prescriptions: Continue Omeprazole 20 mg PO DAILY Losartan Potassium 100 mg PO DAILY Oxycodone HCl/Acetaminophen [Oxycodone-Acetaminophen 5-325] 1 tab PO DAILY PRN PRN Reason: Pain Triamterene/Hydrochlorothiazid [Triamterene-Hctz 37.5-25 mg Tb] 1 dose PO DAILY Simvastatin [Zocor] 20 mg PO DAILY Paroxetine HCl 20 mg [Paxil 20 MG] 20 mg PO DAILY Follow up with: VIDAL COFFEY [Primary Care Provider] -
== END 2023-12-02 18:34 | disposition home or self-care (01) ==
LOC: ED 20:52 → MED SURG 12-01 02:40
PROVIDERS: ADMIT Internal Medicine Nephrology; ATTEND Internal Medicine Nephrology
DX: K56.609 Unspecified intestinal obstruction, unspecified as to partial versus complete obstruction (principal); E86.0 Dehydration; I10 Essential (primary) hypertension; E66.9 Obesity, unspecified; E78.5 Hyperlipidemia, unspecified; E87.6 Hypokalemia; K21.9 Gastro-esophageal reflux disease without esophagitis; R73.03 Prediabetes; Z79.899 Other long term (current) drug therapy
CPT/HCPCS: 36000; 36415; 71045; 71275; 74018; 74177; 80053; 80061; 81001; 82150; 82947; 83036; 83605; 83690; 83721; 84132; 84134; 84443; 84484; 85025; 85027; 85610; 85652; 93005; 96360; 96365; 96374; 99285; Q3014; J0696; J2405; J3480; A9270-GY

== ENCOUNTER 2024-10-05 05:47 | Day surgery (SDC) | payer BC ==
[2024-10-05] MEDS: Sodium Chloride 0.9% 1000 ML 1,000 ML IV SCH (06:30)
[2024-10-05 06:35] VITALS: RESP 18
[2024-10-05] MEDS ORDERED: propofoL IV ONE ×2 (07:29→07:39)
[2024-10-05 08:22] VITALS: TEMP 97.5; O2SAT 97
[2024-10-05 08:28] VITALS: BP 103/70; PULSE 65
--- NOTE | 2024-10-05 13:27 | OP ---
SURGERY DATE/TIME: 10/05/2024 [id number] PREOPERATIVE DIAGNOSIS: Screening exam. POSTOPERATIVE DIAGNOSIS: Normal colon. PROCEDURE: Colonoscopy. SURGEON: Patrick Lemus MD ANESTHESIA: Medication given by the anesthesia department. INDICATIONS: The patient is a 53-year-old white male patient presenting now for screening colonoscopy. He was apprised of the risks of the procedure including risks of perforation, phlebitis, untoward reaction to medication, bleeding, and missed lesions. The patient verbalized his understanding and desired to have the procedure performed. DESCRIPTION OF PROCEDURE AND FINDINGS: The patient was given medication by the anesthesia department. He had continuous pulse oximetry, ECG monitoring, and intermittent blood pressure monitoring during the examination. He was placed in left lateral decubitus position. Digital rectal examination was performed and revealed normal anal sphincter tone and no masses. The flexible Olympus colonoscope was used to intubate the rectum. A view of the colon was developed sequentially to the cecum and upon insertion and withdrawal including retroflexed view in the rectum, no mucosal lesions were encountered. The scope was removed from the patient who tolerated the procedure well and sent to outpatient recovery in good condition. The prep was noted be to good.
== END 2024-10-05 08:41 | disposition home or self-care (01) ==
LOC: SDC 05:47
PROVIDERS: ATTEND Family Medicine
DX: Z12.11 Encounter for screening for malignant neoplasm of colon (principal); R73.03 Prediabetes
CPT/HCPCS: 82947; 93005; J2704